=== PATIENT | male | born 1945 | race Caucasian/White ===

== ENCOUNTER 2018-09-27 19:01 | Emergency (ER) | payer OTHER ==
[2018-09-27 21:12] LABS: ABS Basophils 0 10^3/ul (0-0.2); ABS Eosinophils 0.5 10^3/ul (0-0.6); ABS Lymphocytes 2.9 10^3/ul (1.0-4.8); ABS Monocytes 1.1 10^3/ul (0-0.8); ABS Neutrophils 6.3 10^3/ul (1.5-7.7); ABS Nucleated RBC 0 10^3/ul; Eosinophil % 4.9 %; Hematocrit 35 % (36-46); Hemoglobin 11.8 g/dL (14.0-18.0); Lymphocyte % 26.8 %; Mean Corpuscular HGB Conc 34 g/dL (31-36); Mean Corpuscular Hemoglobin 30 pg (27-31); Mean Corpuscular Volume 88 fL (80-94); Nucleated Red Blood Cells % 0; Platelet Count 199 10^3/uL (150-450); Red Blood Count 3.99 10^6 /uL (4.18-5.48); Red Cell Distribution Width 14 % (10.5-15); White Blood Count 10.9 10^3/uL (3.5-10.8)
[2018-09-27 21:29] LABS: Albumin 3.7 g/dL (3.2-5.2); Albumin/Globulin Ratio 1.3 (1-3); BUN/Creatinine Ratio 17.3 (8-20); EGFR Non-African American 37.2 (>60); Globulin 2.9 g/dL (2-4); Potassium 4.6 mmol/L (3.5-5.0); Total Protein 6.6 g/dL (6.4-8.9)
--- NOTE | 2018-09-28 00:14 | ED ---
Lower Extremity - HPI Summary HPI Summary: The patient is a 73 year old male who is presenting to the [facility] with a chief complaint of bilateral lower extremity swelling. The patient is accompanied with his . The swelling has been persistent for a few months according to the patient, but has worsened according to his . The patient was seen at a [facility] and was frequenting the center in order to receive medication when he was recommended to enter the [facility] to be seen for the lower extremity swelling. The patient also reports redness at both lower extremities. He denies SOB. He reports minor bilateral leg pain. Pertinent past medical history includes T2 DM and neuropathy. He is also currently listed under disability according to his . The pain is rated to be 4/10 in severity. Symptoms are alleviated by nothing. Symptoms are aggravated by nothing. - History of Current Complaint Chief Complaint: EDExtremityLower Stated Complaint: BOTH LEGS SWOLLEN PER PT Time Seen by Provider: 09/27/18 23:36 Hx Obtained From: Patient, Family/[employer] Onset/Duration: Weeks Severity Initially: Moderate Severity Currently: Moderate Pain Intensity: 4 Pain Scale Used: 0-10 Numeric Timing: Constant Associated Signs And Symptoms: Positive: Negative Aggravating Factor(s): Nothing Alleviating Factor(s): Nothing - Allergies/Home Medications Allergies/Adverse Reactions: Allergies Allergy/AdvReac Type Severity Reaction Status Date / Time poison aimee extract Allergy Unknown Hives Verified 07/30/18 11:18 sulfamethoxazole Allergy Unknown Verified 07/30/18 11:18 [From Bactrim] Reaction Details trimethoprim [From Bactrim] Allergy Unknown Verified 07/30/18 11:18 Reaction Details PMH/Surg Hx/FS Hx/Imm Hx Endocrine/Hematology History: Reports: Hx Diabetes, Hx Thyroid Disease, Hx Anemia Denies: Hx Anticoagulant Therapy Cardiovascular History: Reports: Hx Angina, Hx Hypercholesterolemia, Hx Hypertension, Other Cardiovascular Problems/Disorders - "heart enlarged" Denies: Hx Coronary Artery Disease, Hx Myocardial Infarction, Hx Pacemaker/ ICD, Hx Valvular Heart Disease Respiratory History: Reports: Hx Sleep Apnea Denies: Hx Asthma, Hx Chronic Obstructive Pulmonary Disease (COPD) GI History: Reports: Hx Gastroesophageal Reflux Disease, Other GI Disorders - Barretts Esophagus History: Reports: Hx Acute Renal Failure, Hx Benign Prostatic Hyperplasia, Hx Chronic Renal Failure - stage 3, Other Problems/Disorders - pt states has "kidney problems", seeing specialist in january Musculoskeletal History: Reports: Hx Arthritis, Hx Back Problems, Other Musculoskeletal History - Frequent falls r/t loss of foot sensation Sensory History: Reports: Hx Contacts or Glasses, Hx Hearing Aid - x2, Hx Hearing Problem - KASHIA, tinnitis, Other Sensory Impairments Opthamlomology History: Reports: Hx Contacts or Glasses, Other Sensory Impairments Neurological History: Reports: Other Neuro Impairments/Disorders - diabetic neuropathy, parkinson's, PAIN CLINIC PT. Denies: Hx Headaches Psychiatric History: Reports: Hx Depression, Hx Post Traumatic Stress Disorder Denies: Hx Panic Disorder, Hx Substance Abuse - Surgical History Surgery Procedure, Year, and Place: cholecystectomy. vasectomy Hx Anesthesia Reactions: No Infectious Disease History: No Infectious Disease History: Denies: Traveled Outside the [place] in Last 30 Days - Family History Known Family History: Positive: Other - Cancer Negative: Cardiac Disease - Social History Alcohol Use: None Alcohol Amount: couple beers/week Substance Use Type: Reports: None Smoking Status (MU): Former Smoker Type: Cigarettes Have You Smoked in the Last Year: No Review of Systems Constitutional: Negative Eyes: Negative ENT: Negative Cardiovascular: Negative Negative: Shortness Of Breath Gastrointestinal: Negative Genitourinary: Negative Musculoskeletal: Other - Bilateral Lower Extermity pain Positive: Edema - Bilateral Lower Extremity Skin: Other - Redness Lower Extermity bilaterally Neurological: Negative Psychological: Normal All Other Systems Reviewed And Are Negative: Yes Physical Exam - Summary Physical Exam Summary: VITAL SIGNS: Reviewed. GENERAL: Patient is a well-developed and nourished (MALE) who is lying comfortable in the stretcher. Patient is not in any acute respiratory distress. HEAD AND FACE: No signs of trauma. No ecchymosis, hematomas or skull depressions. No sinus tenderness. EYES: PERRLA, EOMI x 2, No injected conjunctiva, no nystagmus. EARS: Hearing grossly intact. Ear canals and tympanic membranes are within normal limits. MOUTH: Oropharynx within normal limits. NECK: Supple, trachea is midline, no adenopathy, no JVD, no carotid bruit, no c- spine tenderness, neck with full ROM. CHEST: Symmetric, no tenderness at palpation LUNGS: Clear to auscultation bilaterally. No wheezing or crackles. CVS: Regular rate and rhythm, S1 and S2 present, no murmurs or gallops appreciated. ABDOMEN: Soft, non-tender. No signs of distention. No rebound no guarding, and no masses palpated. Bowel sounds are normal. EXTREMITIES: Bilateral Lower Extremity Edema. NEURO: Alert and oriented x 3. No acute neurological deficits. Speech is normal and follows commands. SKIN: Chronic Skin Changes Triage Information Reviewed: Yes Vital Signs On Initial Exam: Initial Vitals Temp Pulse Resp BP Pulse Ox 98.1 F 81 18 106/88 95 09/27/18 19:16 09/27/18 19:16 09/27/18 19:16 09/27/18 19:16 09/27/18 19:16 Vital Signs Reviewed: Yes Diagnostics - Vital Signs Vital Signs Temp Pulse Resp BP Pulse Ox 09/27/18 23:33 71 24 143/66 96 09/27/18 23:32 76 22 96 09/27/18 20:58 98.5 F 70 20 129/59 96 09/27/18 19:58 98.5 F 70 20 129/59 96 09/27/18 19:16 98.1 F 81 18 106/88 95 - Laboratory Lab Results: Lab Results 09/27/18 09/27/18 09/27/18 Range/Units 21:02 21:02 21:02 WBC 10.9 H (3.5-10.8) 10^3/uL RBC 3.99 L (4.18-5.48) 10^6 /uL Hgb 11.8 L (14.0-18.0) g/dL Hct 35 L (36-46) % MCV 88 (80-94) fL MCH 30 (27-31) pg MCHC 34 (31-36) g/dL RDW 14 (10.5-15) % Plt Count 199 (150-450) 10^3/uL MPV 9.0 (7.4-10.4) fL Neut % (Auto) 58.2 % Lymph % (Auto) 26.8 % [place] % (Auto) 9.9 % Eos % (Auto) 4.9 % Baso % (Auto) 0.2 % Absolute Neuts (auto) 6.3 (1.5-7.7) 10^3/ul Absolute Lymphs (auto) 2.9 (1.0-4.8) 10^3/ul Absolute Monos (auto) 1.1 H (0-0.8) 10^3/ul Absolute Eos (auto) 0.5 (0-0.6) 10^3/ul Absolute Basos (auto) 0 (0-0.2) 10^3/ul Absolute Nucleated RBC 0 10^3/ul Nucleated RBC % 0 Sodium 138 (135-145) mmol/L Potassium 4.6 (3.5-5.0) mmol/L Chloride 107 (101-111) mmol/L Carbon Dioxide 26 (22-32) mmol/L Anion Gap 5 (2-11) mmol/L BUN 31 H (6-24) mg/dL Creatinine 1.79 H (0.67-1.17) mg/dL Est GFR ( Amer) 45.0 (>60) Est GFR (Non-Af Amer) 37.2 (>60) BUN/Creatinine Ratio 17.3 (8-20) Glucose 214 H (70-100) mg/dL Lactic Acid 0.8 (0.5-2.0) mmol/L Calcium 9.0 (8.6-10.3) mg/dL Total Bilirubin 1.00 (0.2-1.0) mg/dL AST 24 (13-39) U/L ALT 22 (7-52) U/L Alkaline Phosphatase 69 (34-104) U/L Troponin I 0.00 (<0.04) ng/mL B-Natriuretic Peptide (<=100) pg/mL Total Protein 6.6 (6.4-8.9) g/dL Albumin 3.7 (3.2-5.2) g/dL Globulin 2.9 (2-4) g/dL Albumin/Globulin Ratio 1.3 (1-3) 09/27/18 Range/Units 21:02 WBC (3.5-10.8) 10^3/uL RBC (4.18-5.48) 10^6 /uL Hgb (14.0-18.0) g/dL Hct (36-46) % MCV (80-94) fL MCH (27-31) pg MCHC (31-36) g/dL RDW (10.5-15) % Plt Count (150-450) 10^3/uL MPV (7.4-10.4) fL Neut % (Auto) % Lymph % (Auto) % [place] % (Auto) % Eos % (Auto) % Baso % (Auto) % Absolute Neuts (auto) (1.5-7.7) 10^3/ul Absolute Lymphs (auto) (1.0-4.8) 10^3/ul Absolute Monos (auto) (0-0.8) 10^3/ul Absolute Eos (auto) (0-0.6) 10^3/ul Absolute Basos (auto) (0-0.2) 10^3/ul Absolute Nucleated RBC 10^3/ul Nucleated RBC % Sodium (135-145) mmol/L Potassium (3.5-5.0) mmol/L Chloride (101-111) mmol/L Carbon Dioxide (22-32) mmol/L Anion Gap (2-11) mmol/L BUN (6-24) mg/dL Creatinine (0.67-1.17) mg/dL Est GFR ( Amer) (>60) Est GFR (Non-Af Amer) (>60) BUN/Creatinine Ratio (8-20) Glucose (70-100) mg/dL Lactic Acid (0.5-2.0) mmol/L Calcium (8.6-10.3) mg/dL Total Bilirubin (0.2-1.0) mg/dL AST (13-39) U/L ALT (7-52) U/L Alkaline Phosphatase (34-104) U/L Troponin I (<0.04) ng/mL B-Natriuretic Peptide 30 (<=100) pg/mL Total Protein (6.4-8.9) g/dL Albumin (3.2-5.2) g/dL Globulin (2-4) g/dL Albumin/Globulin Ratio (1-3) Result Diagrams: 09/27/18 21:02 09/27/18 21:02 Lab Statement: Any lab studies that have been ordered have been reviewed, and results considered in the medical decision making process. - Radiology Chest X-ray Radiology Interpretation Completed By: ED Physician Summary of Radiographic Findings: Chest X-ray reveals no acute processes as per ED Physician. - Ultrasound No standard instances Ultrasound Interpretation Completed By: Radiologist Summary of Ultrasound Findings: US Venous Dopplar Study reveals as per radiologist, No acute findings. No evidence of deep vein thrombosis. The ED Physician has reviewed this radiology report. Lower Extremity Course/Dx - Course Course Of Treatment: The patient is a 73 year old male who is presenting to the [facility] with a chief complaint of Bilateral lower extremity edema. In the [facility], the patient received a chest X-ray and a US Venous Dopplar Study. The patient, upon reviewing the radiology reports, will be discharged home. We recommend Elastic stocking for the patient to wear and also elevation at home to reduce the swelling. The dx will be lower extremity edema. The patient is agreeable to this plan and will follow up with his primary care physician as recommended. - Diagnoses Provider Diagnoses: Lower extremity edema Discharge - Sign-Out/Discharge Documenting (check all that apply): Patient Departure - Discharge Home Patient Received Moderate/Deep Sedation with Procedure: No - Discharge Plan Condition: Stable Disposition: HOME Referrals: Devi Hernández [Primary Care Provider] - - Attestation Statements Document Initiated by Osmany: Yes Documenting Scribe: Yannick Santamaria Provider For Whom Osmany is Documenting (Include Credential): Dr. Tato Ceron Attestation: Yannick Laura scribed for Dr. Enrique Patel on 09/28/18 at 0100. Status of Scribe Document: Ready
[2018-09-28 02:14] VITALS: BP 134/62
== END 2018-09-28 01:40 | disposition home or self-care (01) ==
LOC: ED 19:01
DX: R60.0 Localized edema (principal); J44.9 Chronic obstructive pulmonary disease, unspecified; I11.9 Hypertensive heart disease without heart failure; E11.9 Type 2 diabetes mellitus without complications; E07.9 Disorder of thyroid, unspecified; D64.9 Anemia, unspecified; E78.00 Pure hypercholesterolemia, unspecified; F32.9 Major depressive disorder, single episode, unspecified; Z88.2 Allergy status to sulfonamides; Z88.8 Allergy status to other drugs, medicaments and biological substances; Z87.891 Personal history of nicotine dependence
CPT/HCPCS: 36415; 71046; 80053; 83605; 83880; 84484; 85025; 93970; 99283

== ENCOUNTER 2019-03-12 15:24 | Emergency (ER) | payer OTHER ==
[2019-03-12] MEDS ORDERED: NS 0.9% 1000 ML** 1,000 ML IV ONE ×3 (16:55→20:32)
[2019-03-12 17:32] LABS: ABS Basophils 0.1 10^3/ul (0-0.2); ABS Eosinophils 0.3 10^3/ul (0-0.6); ABS Lymphocytes 1.6 10^3/ul (1.0-4.8); ABS Monocytes 0.7 10^3/ul (0-0.8); ABS Neutrophils 6.9 10^3/ul (1.5-7.7); Eosinophil % 3.3 %; Hematocrit 37 % (42-52); Hemoglobin 12.4 g/dL (14.0-18.0); Lymphocyte % 16.9 %; Mean Corpuscular HGB Conc 34 g/dL (31-36); Mean Corpuscular Hemoglobin 31 pg (27-31); Mean Corpuscular Volume 91 fL (80-94); Mean Platelet Volume 9.5 fL (7.4-10.4); Nucleated Red Blood Cells % 0.1; Platelet Count 191 10^3/uL (150-450); Red Blood Count 4.04 10^6 /uL (4.18-5.48); Red Cell Distribution Width 15 % (10-15); White Blood Count 9.7 10^3/uL (3.5-10.8)
[2019-03-12 17:43] LABS: Activated Partial Thrombo Time 35.3 seconds (26.0-38.0); INR 1.12 (0.82-1.09)
[2019-03-12 17:53] LABS: Albumin/Globulin Ratio 1.3 (1-3); BUN/Creatinine Ratio 33.2 (8-20); C Reactive Protein 1.44 mg/L (<8.01); Calcium 9.3 mg/dL (8.6-10.3); EGFR African American 37.9 (>60); EGFR Non-African American 31.3 (>60); Globulin 3.1 g/dL (2-4); Total Bilirubin 1.1 mg/dL (0.2-1.0); Total Protein 7.1 g/dL (6.4-8.9)
[2019-03-12 17:54] LABS: Potassium 5.2 mmol/L (3.5-5.0)
[2019-03-12 18:03] LABS: Urine Appearance Clear; Urine Bilirubin Negative (Negative); Urine Blood Negative (Negative); Urine Color Yellow; Urine Glucose Negative (Negative); Urine Ketones Negative (Negative); Urine Nitrite Negative (Negative); Urine Protein Negative (Negative); Urine Specific Gravity 1.012 (1.010-1.030); Urine Urobilinogen Negative (Negative)
[2019-03-12 18:07] LABS: TSH (Thyroid Stimulating Horm) 2.43 mcIU/mL (0.34-5.60)
[2019-03-12] MEDS ORDERED: Acetaminophen TAB* 325 MG PO ONE (18:48)
--- NOTE | 2019-03-12 20:23 | ED ---
Syncope/Near Syncope - HPI Summary HPI Summary: This patient is a year old M presenting to [facility] accompanied by Paige with a chief complaint of dizziness since 03/01/19. Patient's states that patient receives his usual at the [facility]. They have been adjusting his BP meds and pt was advised to come to the ED when his systolic BP is below 100. Patient's stated that patien's systolic BP dropped to 65 today. Patient's also states that he has been lightheaded and has no appetite and poor po intake for more than a week. His glucoses have not been running low. Pt has hx HTN, DM HLD, CAD, so he came for evaluation. The patient denies chest pain or any pain thus rates pain, 0/10 in severity. Symptoms aggravated by nothing. Symptoms alleviated by nothing. Patient reports MORENO and diaphoresis. Patient denies fever, chills, cough,SOB, chest pain, abdominal pain, N,V,D, urinary sxs. Pt has had no syncope or fall, no stroke like symptoms such as focal weakness, speech problems, trouble with gait or facial asymmetry per . Vital signs while in room: HR 68 bpm, BP 148/74, O2 sat 97% Allergies Allergy/AdvReac Type Severity Reaction Status Date / Time poison aimee extract Allergy Unknown Hives Verified 01/13/19 10:39 sulfamethoxazole Allergy Unknown Verified 01/13/19 10:39 [From Bactrim] Reaction Details trimethoprim [From Bactrim] Allergy Unknown Verified 01/13/19 10:39 Reaction Details Home Medications Medication Instructions Recorded Confirmed Type Atorvastatin* [Lipitor*] 10 mg PO DAILY 04/30/14 03/12/19 History Cholecalciferol TAB* [Vitamin D 2,000 unit PO DAILY 04/30/14 03/12/19 History TAB*] Pregabalin CAP(*) [Lyrica CAP(*)] 150 mg PO TID 10/29/17 03/12/19 History Acetaminophen TAB* [Tylenol TAB*] 325 - 650 mg PO BID PRN 03/12/19 03/12/19 History Aspirin EC TAB* [Ecotrin EC Low 81 mg PO DAILY 03/12/19 03/12/19 History Dose 81 MG*] Fluoride (Sodium) [Prevident 1.1 % PO DAILY 03/12/19 03/12/19 History Fluoride] Glucose ORAL* [Glutose*] 15 gm PO . DIRECTED PRN 03/12/19 03/12/19 History Insulin ASPART (NF) [Novolog (NF)] 0 - 100 units SUBCUT TID WITH MEALS 03/12/19 03/12/19 History Insulin GLARGINE(*) [Lantus(*)] 30 - 34 units SUBCUT QPM 03/12/19 03/12/19 History Levothyroxine TAB* [Synthroid TAB*] 50 mcg PO QAM 03/12/19 03/12/19 History Lisinopril TAB* [Prinivil TAB*] 40 mg PO DAILY 03/12/19 03/12/19 History Loperamide CAP* [Imodium CAP*] 2 mg PO BID PRN 03/12/19 03/12/19 History Tamsulosin CAP* [Flomax CAP*] 0.4 mg PO DAILY 03/12/19 03/12/19 History - History Of Current Complaint Chief Complaint: EDDizziness Time Seen by Provider: 03/12/19 16:55 Hx Obtained From: Patient, Family/Loose Hand Packer - , Paige Onset/Duration: Sudden Onset, Lasting Weeks - 1-1.5 Timing: Constant Context: Other - generalized weakness, dizziness, low BP, and poor po intake. Activity At Onset: At Rest Associated Head Trauma: No Aggravating Factor(s): Other - nothing Alleviating Factor(s): Nothing Associated Signs And Symptoms: Decreased Oral Intake, Diaphoresis, Dizzy, Headache, Weakness - generalized - Allergies/Home Medications Allergies/Adverse Reactions: Allergies Allergy/AdvReac Type Severity Reaction Status Date / Time poison aimee extract Allergy Unknown Hives Verified 01/13/19 10:39 sulfamethoxazole Allergy Unknown Verified 01/13/19 10:39 [From Bactrim] Reaction Details trimethoprim [From Bactrim] Allergy Unknown Verified 01/13/19 10:39 Reaction Details Home Medications: Home Medications Acetaminophen TAB* [Tylenol TAB*] 325 - 650 mg PO BID PRN 03/12/19 [History Confirmed 03/12/19] Aspirin EC TAB* [Ecotrin EC Low Dose 81 MG*] 81 mg PO DAILY 03/12/19 [History Confirmed 03/12/19] Fluoride (Sodium) [Prevident Fluoride] 1.1 % PO DAILY 03/12/19 [History Confirmed 03/12/19] Glucose ORAL* [Glutose*] 15 gm PO . DIRECTED PRN 03/12/19 [History Confirmed 03/12/19] Insulin ASPART (NF) [Novolog (NF)] 0 - 100 units SUBCUT TID WITH MEALS 03/12/19 [History Confirmed 03/12/19] Insulin GLARGINE(*) [Lantus(*)] 30 - 34 units SUBCUT QPM 03/12/19 [History Confirmed 03/12/19] Levothyroxine TAB* [Synthroid TAB*] 50 mcg PO QAM 03/12/19 [History Confirmed ] Lisinopril TAB* [Prinivil TAB*] 40 mg PO DAILY 03/12/19 [History Confirmed 03/12] Loperamide CAP* [Imodium CAP*] 2 mg PO BID PRN 03/12/19 [History Confirmed 03/12] Tamsulosin CAP* [Flomax CAP*] 0.4 mg PO DAILY 03/12/19 [History Confirmed ] PMH/Surg Hx/FS Hx/Imm Hx Previously Healthy: No Endocrine/Hematology History: Reports: Hx Diabetes, Hx Thyroid Disease - hypothyroid , Hx Anemia Denies: Hx Anticoagulant Therapy Cardiovascular History: Reports: Hx Angina, Hx Coronary Artery Disease, Hx Hypercholesterolemia, Hx Hypertension, Other Cardiovascular Problems/Disorders - "heart enlarged" Denies: Hx Myocardial Infarction, Hx Pacemaker/ICD, Hx Valvular Heart Disease Respiratory History: Reports: Hx Sleep Apnea Denies: Hx Asthma, Hx Chronic Obstructive Pulmonary Disease (COPD) GI History: Reports: Hx Gastroesophageal Reflux Disease, Other GI Disorders - Harris's Esophagus History: Reports: Hx Acute Renal Failure, Hx Benign Prostatic Hyperplasia, Hx Chronic Renal Failure - stage 3 CKD Musculoskeletal History: Reports: Hx Arthritis, Hx Back Problems, Other Musculoskeletal History - Frequent falls r/t loss of foot sensation Sensory History: Reports: Hx Contacts or Glasses, Hx Hearing Aid - x2, Hx Hearing Problem - [place], tinnitis Opthamlomology History: Reports: Hx Contacts or Glasses EENT History: Reports: Hx Hearing Aid Neurological History: Reports: Hx Peripheral Neuropathy, Other Neuro Impairments /Disorders - Parkinson's. Denies: Hx Headaches Psychiatric History: Reports: Hx Depression, Hx Post Traumatic Stress Disorder Denies: Hx Panic Disorder, Hx Substance Abuse - Surgical History Surgical History: Yes Surgery Procedure, Year, and Place: cholecystectomy. vasectomy Hx Anesthesia Reactions: No Infectious Disease History: No Infectious Disease History: Denies: Traveled Outside the [place] in Last 30 Days - Family History Known Family History: Positive: Other - Cancer Negative: Cardiac Disease - Social History Lives: With Family Alcohol Use: None Alcohol Amount: couple beers/week Substance Use Type: Reports: None Smoking Status (MU): Former Smoker Type: Cigarettes Have You Smoked in the Last Year: No Review of Systems Positive: Skin Diaphoresis Cardiovascular: Negative Respiratory: Negative Gastrointestinal: Negative, Other - no appetite Positive: no symptoms reported Musculoskeletal: Negative Skin: Negative Positive: Headache, Weakness Psychological: Normal All Other Systems Reviewed And Are Negative: Yes Physical Exam - Summary Physical Exam Summary: Appearance: Well appearing, no acute pain distress, well-nourished Skin: Warm, color reflects adequate perfusion, dry, flushed Head: Normal Head/Face inspection, atraumatic, minimal left facial droop ( preexisting) Eyes: Conjunctiva clear, PERRL EOMI, no nystagmus ENT: dry mucosa Neck: Supple, no nodes, no JVD Respiratory: Lungs clear, normal breath sounds, no respiratory distress Cardio: RRR, No murmur, pulses normal, brisk capillary refill Abdomen: Soft, nontender Bowel sounds: Present Musculoskeletal: Strength Intact/ROM intact, no calf tenderness, no edema. Psychological: Normal Neuro: Alert, muscle tone normal, no focal deficit except pre-existing (per ) left facial droop, Motor 5/5, sensation intact to light touch, nl gait. Triage Information Reviewed: Yes Vital Signs On Initial Exam: Initial Vitals Temp Pulse Resp BP Pulse Ox 97.8 F 88 16 92/62 97 03/12/19 15:46 03/12/19 15:46 03/12/19 15:46 03/12/19 15:46 03/12/19 15:46 Vital Signs Reviewed: Yes Procedures - Sedation Patient Received Moderate/Deep Sedation with Procedure: No Diagnostics - Vital Signs Vital Signs Temp Pulse Resp BP Pulse Ox 03/12/19 19:44 97.7 F 96 03/12/19 19:41 19 122/68 03/12/19 19:11 18 115/69 03/12/19 19:00 20 03/12/19 18:56 25 150/71 03/12/19 18:54 21 146/82 03/12/19 18:51 22 133/71 03/12/19 18:41 67 15 142/73 97 03/12/19 18:35 98.5 F 03/12/19 18:34 68 18 148/74 97 03/12/19 18:00 20 03/12/19 17:47 97 90/59 03/12/19 16:40 62 20 110/61 93 03/12/19 16:13 64 16 03/12/19 16:11 11 112/62 03/12/19 16:10 17 03/12/19 15:46 97.8 F 88 16 92/62 97 - Laboratory Lab Results: Lab Results 03/12/19 03/12/19 03/12/19 Range/Units 17:18 17:18 17:18 WBC 9.7 (3.5-10.8) 10^3/uL RBC 4.04 L (4.18-5.48) 10^6 /uL Hgb 12.4 L (14.0-18.0) g/dL Hct 37 L (42-52) % MCV 91 (80-94) fL MCH 31 (27-31) pg MCHC 34 (31-36) g/dL RDW 15 (10-15) % Plt Count 191 (150-450) 10^3/uL MPV 9.5 (7.4-10.4) fL Neut % (Auto) 71.3 % Lymph % (Auto) 16.9 % [place] % (Auto) 7.2 % Eos % (Auto) 3.3 % Baso % (Auto) 1.3 % Absolute Neuts (auto) 6.9 (1.5-7.7) 10^3/ul Absolute Lymphs (auto) 1.6 (1.0-4.8) 10^3/ul Absolute Monos (auto) 0.7 (0-0.8) 10^3/ul Absolute Eos (auto) 0.3 (0-0.6) 10^3/ul Absolute Basos (auto) 0.1 (0-0.2) 10^3/ul Absolute Nucleated RBC 0.0 10^3/ul Nucleated RBC % 0.1 INR (Anticoag Therapy) 1.12 H (0.82-1.09) APTT 35.3 (26.0-38.0) seconds Sodium 135 (135-145) mmol/L Potassium 5.2 H (3.5-5.0) mmol/L Chloride 108 (101-111) mmol/L Carbon Dioxide 20 L (22-32) mmol/L Anion Gap 7 (2-11) mmol/L BUN 69 H (6-24) mg/dL Creatinine 2.08 H (0.67-1.17) mg/dL Est GFR ( Amer) 37.9 (>60) Est GFR (Non-Af Amer) 31.3 (>60) BUN/Creatinine Ratio 33.2 H (8-20) Glucose 174 H (70-100) mg/dL Lactic Acid (0.5-2.0) mmol/L Calcium 9.3 (8.6-10.3) mg/dL Magnesium 2.0 (1.9-2.7) mg/dL Total Bilirubin 1.10 H (0.2-1.0) mg/dL AST 21 (13-39) U/L ALT 31 (7-52) U/L Alkaline Phosphatase 79 (34-104) U/L Total Creatine Kinase 148 (10-223) U/L Troponin I 0.00 (<0.04) ng/mL C-Reactive Protein 1.44 (<8.01) mg/L B-Natriuretic Peptide (<=100) pg/mL Total Protein 7.1 (6.4-8.9) g/dL Albumin 4.0 (3.2-5.2) g/dL Globulin 3.1 (2-4) g/dL Albumin/Globulin Ratio 1.3 (1-3) TSH 2.43 (0.34-5.60) mcIU/mL Urine Color Urine Appearance Urine pH (5-9) Ur Specific [place] (1.010-1.030) Urine Protein (Negative) Urine Ketones (Negative) Urine Blood (Negative) Urine Nitrate (Negative) Urine Bilirubin (Negative) Urine Urobilinogen (Negative) Ur Leukocyte Esterase (Negative) Urine Glucose (Negative) 03/12/19 03/12/19 03/12/19 Range/Units 17:18 17:18 17:44 WBC (3.5-10.8) 10^3/uL RBC (4.18-5.48) 10^6 /uL Hgb (14.0-18.0) g/dL Hct (42-52) % MCV (80-94) fL MCH (27-31) pg MCHC (31-36) g/dL RDW (10-15) % Plt Count (150-450) 10^3/uL MPV (7.4-10.4) fL Neut % (Auto) % Lymph % (Auto) % [place] % (Auto) % Eos % (Auto) % Baso % (Auto) % Absolute Neuts (auto) (1.5-7.7) 10^3/ul Absolute Lymphs (auto) (1.0-4.8) 10^3/ul Absolute Monos (auto) (0-0.8) 10^3/ul Absolute Eos (auto) (0-0.6) 10^3/ul Absolute Basos (auto) (0-0.2) 10^3/ul Absolute Nucleated RBC 10^3/ul Nucleated RBC % INR (Anticoag Therapy) (0.82-1.09) APTT (26.0-38.0) seconds Sodium (135-145) mmol/L Potassium (3.5-5.0) mmol/L Chloride (101-111) mmol/L Carbon Dioxide (22-32) mmol/L Anion Gap (2-11) mmol/L BUN (6-24) mg/dL Creatinine (0.67-1.17) mg/dL Est GFR ( Amer) (>60) Est GFR (Non-Af Amer) (>60) BUN/Creatinine Ratio (8-20) Glucose (70-100) mg/dL Lactic Acid 0.7 (0.5-2.0) mmol/L Calcium (8.6-10.3) mg/dL Magnesium (1.9-2.7) mg/dL Total Bilirubin (0.2-1.0) mg/dL AST (13-39) U/L ALT (7-52) U/L Alkaline Phosphatase (34-104) U/L Total Creatine Kinase (10-223) U/L Troponin I (<0.04) ng/mL C-Reactive Protein (<8.01) mg/L B-Natriuretic Peptide 26 (<=100) pg/mL Total Protein (6.4-8.9) g/dL Albumin (3.2-5.2) g/dL Globulin (2-4) g/dL Albumin/Globulin Ratio (1-3) TSH (0.34-5.60) mcIU/mL Urine Color Yellow Urine Appearance Clear Urine pH 5.0 (5-9) Ur Specific [place] 1.012 (1.010-1.030) Urine Protein Negative (Negative) Urine Ketones Negative (Negative) Urine Blood Negative (Negative) Urine Nitrate Negative (Negative) Urine Bilirubin Negative (Negative) Urine Urobilinogen Negative (Negative) Ur Leukocyte Esterase Negative (Negative) Urine Glucose Negative (Negative) Result Diagrams: 03/12/19 17:18 03/12/19 17:18 Lab Statement: Any lab studies that have been ordered have been reviewed, and results considered in the medical decision making process. - Radiology Chest Xray Radiology Interpretation Completed By: Radiologist Summary of Radiographic Findings: Chest Xray reveals, per radiologist, IMPRESSION: No evidence for acute intrathoracic disease. ED Physician has reviewed this report. - CT Brain CT CT Interpretation Completed By: Radiologist Summary of CT Findings: Brain CT reveals, per radiologist, IMPRESSION: No acute intracranial process evident. Mild involutional change. ED Physician has reviewed this report. - EKG 1557 Cardiac Rate: NL - 76 EKG Rhythm: Sinus Rhythm ST Segment: Non-Specific - nl AVCT, RBBB, nl QCt Ectopy: None EKG Comparison: No Significant Change - 10/22/13 Summary of EKG Findings: SR, RBBB, no acute changes, no change c/w prior. has reviewed and interpreted this EKG. Re-Evaluation - Re-Evaluation First Eval Re-Evaluation Time: 20:20 Change: Improved Comment: Pt is ambulatory without assistance to BR, feels much better. Second Eval Re-Evaluation Time: 20:30 Change: Improved Comment: discussed diagnoses and orthostatic BP's. Pt has eaten a turkey sandwich and is drinking. Second liter IVNS infusing while preparing to DC. and pt agree with DC. is checking pt's peripheral glucose device that does not require fingersticks, and states that she and pt will manage his DM and glucoses at home. Third Eval Re-Evaluation Time: 21:10 Change: Improved Comment: Pt standing in ED prior to DC. Dizziness improved. Agrees with DC. Course/Dx Course Of Treatment: 73 yo M with hx HTN, DM, HLD, CAD, and a [employer] vet 100% disabled due to [employer] [place] presents with 1 week of dizziness, and hypotension noted at home with BP's less than 100 systolic. Pt is on amlodipine and lisinopril and has DC'd [facility] ([facility]) and has decreased his lisinopril without improving his BP. In ED pt found to be orthostatic for pulse and BP, and was hydrated with NS IV x 3 liters. EKG reveals SR, RBBB, no acute changes, no change c/w prior. ED MD has reviewed and interpreted this EKG. Brain CT reveals, per radiologist, IMPRESSION: No acute intracranial process evident. Mild involutional change. ED Physician has reviewed this report. Brain CT reveals, per radiologist, IMPRESSION: No acute intracranial process evident. Mild involutional change. ED Physician has reviewed this report. In the ED course the patient was given 3 liters of IV fluid for orthostatic BP and pulse and dizziness and Tylenol 650 mg po for a MORENO. Pt's wbc was normal, troponin x 1 was neg, EKG was unchanged and pt had no CP or SOB, CRP was normal, BNP was normal, TSH was normal, and UA was negative. He remained afebrile in the ED and BP's improved with hydration as did symptoms. Pt's Hb was 12 (c/w prior anemia, and he had no vomiting or diarrhea to suggest possible GI bleed), K+ was 5.2 (advised that hydration should improve this, decreased lisinopril may help, to avoid high K+ foods, and definitely have it rechecked in 2 days.Pt's GFR was 31.3 slightly worse from 37 on 10/05/18, but still stage 3 CKD which he has had. His glucose was 179, and this correlated with pt's device that he uses that is implanted in his right upper arm and does not require FS to determine blood glucose. Pt and state that they can manage their glucoses and insulin at home. Patient will be discharged home and the patient is agreeable with this plan. He will continue to take his BP meds as directed and [facility], and attempt to hydrate and eat more. - Diagnoses Differential Diagnosis/HQI/PQRI: Positive: Coronary Artery Disease, Dysrhythmia , Hypoglycemia, Hypovolemia, Myocardial Infarction, Medication Reaction Provider Diagnoses: Near syncope, Hyperkalemia, Orthostatic hypotension, Dehydration, CKD (chronic kidney disease) stage 3, GFR 30-59 ml/min, Anemia, Diabetes mellitus type 2, uncontrolled, without complications Discharge ED - Sign-Out/Discharge Documenting (check all that apply): Patient Departure - home Patient Received Moderate/Deep Sedation with Procedure: No - Discharge Plan Condition: Stable Disposition: HOME Patient Education Materials: Dehydration (ED), Hyperkalemia (ED), Hypotension ( ED) Referrals: Devi Hernández [Primary Care Provider] - 2 Days Additional Instructions: Your blood pressure and pulse were "orthostatic" today meaning that your blood pressure dropped and your pulse got faster when you went from lying to standing , indicating dehydration. You were given IV fluids and food while you were in the ER, with improvement of your orthostatic vital signs. You should continue with the new orders for your blood pressure medication that you have been following since the blood pressure has been low. Your CT brain and your chest xray did not show any abnormalities that need medical attention at this time. Please continue to eat, and to drink plenty of fluids, and continue to follow your glucoses and treat appropriately. Your potassium was minimally elevated while you were in the ER. We have given you instructions about avoiding foods that are higher in potassium. The lisinopril does contribute somewhat to the elevated potassium, but you should continue the lisinopril as directed. Your kidney function was also somewhat worse that it has been, however that should have improved with the hydration, although worsened kidney function also can cause the potassium to be elevated. You will need definite follow up labs in the next few days. Please [facility] with the [facility] in the next 2 days, and please return to the ER if any new or worsening symptoms. - Billing Disposition and Condition Condition: STABLE Disposition: Home - Attestation Statements Document Initiated by Scribe: Yes Documenting Scribe: Maryana Blacmkan Provider For Whom Osmany is Documenting (Include Credential): Dr. Sophia Verdugo MD Scribe Attestation: Maryana Laura scribed for Dr. Sophia Verdugo MD on 04/07/19 at 1210. Scribe Documentation Reviewed: Yes Provider Attestation: The documentation as recorded by the scribe, Maryana Blackman accurately reflects the service I personally performed and the decisions made by me, Dr. Sophia Verdugo MD Status of Scribe Document: Viewed
[2019-03-12 20:55] VITALS: BP 120/61
== END 2019-03-12 21:21 | disposition home or self-care (01) ==
LOC: ED 15:24
DX: R55 Syncope and collapse (principal); E87.5 Hyperkalemia; I95.1 Orthostatic hypotension; E86.0 Dehydration; E11.22 Type 2 diabetes mellitus with diabetic chronic kidney disease; I12.9 Hypertensive chronic kidney disease with stage 1 through stage 4 chronic kidney disease, or unspecified chronic kidney disease; N18.3 Chronic kidney disease, stage 3 (moderate); D63.1 Anemia in chronic kidney disease; E07.9 Disorder of thyroid, unspecified; E78.00 Pure hypercholesterolemia, unspecified; K21.9 Gastro-esophageal reflux disease without esophagitis; N40.0 Benign prostatic hyperplasia without lower urinary tract symptoms; E11.40 Type 2 diabetes mellitus with diabetic neuropathy, unspecified; G20 Parkinson's disease; F32.9 Major depressive disorder, single episode, unspecified; F43.10 Post-traumatic stress disorder, unspecified; Z90.49 Acquired absence of other specified parts of digestive tract; Z98.52 Vasectomy status; Z87.891 Personal history of nicotine dependence; Z79.84 Long term (current) use of oral hypoglycemic drugs; Z79.4 Long term (current) use of insulin; Z79.899 Other long term (current) drug therapy; Z88.1 Allergy status to other antibiotic agents; Z88.2 Allergy status to sulfonamides
CPT/HCPCS: 36415; 70450; 71045; 80053; 81003; 82550; 83605; 83735; 83880; 84443; 84484; 85025; 85610; 85730; 86140; 87040; 93005; 96360; 96361; 99284; A9270-GY

== ENCOUNTER 2019-07-24 13:03 | Observation (INO) | payer OTHER ==
[2019-07-24 13:57] LABS: ABS Basophils 0.1 10^3/ul (0-0.2); ABS Eosinophils 0.4 10^3/ul (0-0.6); ABS Lymphocytes 2.7 10^3/ul (1.0-4.8); ABS Monocytes 0.6 10^3/ul (0-0.8); ABS Neutrophils 4.7 10^3/ul (1.5-7.7); Eosinophil % 4.9 %; Hematocrit 38 % (42-52); Hemoglobin 12.9 g/dL (14.0-18.0); Lymphocyte % 31.4 %; Mean Corpuscular HGB Conc 34 g/dL (31-36); Mean Corpuscular Hemoglobin 31 pg (27-31); Mean Corpuscular Volume 90 fL (80-94); Mean Platelet Volume 9.3 fL (7.4-10.4); Platelet Count 192 10^3/uL (150-450); Red Blood Count 4.24 10^6 /uL (4.18-5.48); Red Cell Distribution Width 13 % (10-15); White Blood Count 8.5 10^3/uL (3.5-10.8)
[2019-07-24 14:13] LABS: Albumin 4.1 g/dL (3.2-5.2); Albumin/Globulin Ratio 1.3 (1-3); BUN/Creatinine Ratio 22.2 (8-20); Calcium 9.7 mg/dL (8.6-10.3); EGFR African American 48.6 (>60); EGFR Non-African American 40.2 (>60); Globulin 3.2 g/dL (2-4); INR 1.08 (0.82-1.09); Potassium 4.4 mmol/L (3.5-5.0); Total Bilirubin 1.2 mg/dL (0.2-1.0); Total Protein 7.3 g/dL (6.4-8.9)
--- NOTE | 2019-07-24 15:43 | ED ---
HPI Chest Pain - HPI Summary HPI Summary: Patient is a 74 y/o M w/ Hx of agent orange, HTN, HLD, and diabetes who presents to [facility] with complaints of sharp "twinges" of pain at his chest for the past couple of days. He states that he went for a regular check-up appointment at [place] [facility] and had mentioned this Sx. EKG was done and was unconcerning. However, patient was advised to come to ED for evaluation. Patient denies radiation of pain or tingling/numbness. No SOB, N/V/D, diaphoresis, bloody/dark stool noted. He denies aggravating factors. Most recent episode of pain occurred this fnp, patient states that he was awoken from sleep by his pain. Currently, he states that he feels fatigued. He states that he was evaluated for similar Sx a few years ago, most recent nuclear stress test was a few years ago as well. He denies Hx of [place] or cardiac stent placement. Fever, chills, erythema of eyes, sore throat, SOB, cough, abdominal pain, N/V, dysuria, hematuria, myalgia, edema, rash, or dizziness are not reported. Home medications and allergies are reviewed. - History of Current Complaint Chief Complaint: EDChestPainROMI Time Seen by Provider: 07/24/19 15:20 Hx Obtained From: Patient Onset/Duration: Started Days Ago Timing: Intermittent Current Severity: None Pain Intensity: 0 Pain Scale Used: 0-10 Numeric Chest Pain Radiates: No Aggravating Factor(s): Nothing Associated Signs and Symptoms: Positive: Chest Pain, Other: - Fever, chills, erythema of eyes, sore throat, SOB, cough, abdominal pain, N/V, dysuria, hematuria, myalgia, edema, rash, or dizziness are not reported. Negative: Numbness, Tingling, Dizziness, Shortness of Breath, Swelling, Fever, Chills, Nausea, Cough, Productive Cough, Nonproductive Cough, Abdominal Pain, Calf Pain/ Swelling, Vomiting, Edema - Allergy/Home Medications Allergies/Adverse Reactions: Allergies Allergy/AdvReac Type Severity Reaction Status Date / Time poison aimee extract Allergy Unknown Hives Verified 05/02/19 10:08 sulfamethoxazole Allergy Unknown Verified 05/02/19 10:08 [From Bactrim] Reaction Details trimethoprim [From Bactrim] Allergy Unknown Verified 05/02/19 10:08 Reaction Details Home Medications: Home Medications Capsaicin [Arthritis Pain Relieving] 0.075 % TOPICAL QID PRN 07/24/19 [History Confirmed 07/24/19] DULoxetine DR DUARTE* [Cymbalta CAP*] 20 mg PO DAILY 07/24/19 [History Confirmed ] Dextrose [Glucose] 16 gm PO DAILY PRN 07/24/19 [History Confirmed 07/24/19] Ferrous Sulfate TAB* 325 mg PO DAILY 07/24/19 [History Confirmed 07/24/19] Fluoride (Sodium) [Prevident 5000 Plus] 1.1 % PO DAILY 07/24/19 [History Confirmed 07/24/19] Glucagon,Human Recombinant [Glucagon Emergency Kit] 1 mg INJ ONCE PRN 07/24/19 [ History Confirmed 07/24/19] Insulin Aspart [Novolog Penfill 100 units/ml 5 ml x 3 pens] 0 - 100 units SUBCUT TID WITH MEALS 07/24/19 [History Confirmed 07/24/19] Insulin Glargine,Hum.rec.anlog [Lantus Solostar 100 units/ml 3 ml x 5 PENS] 30 units SUBCUT DAILY 07/24/19 [History Confirmed 07/24/19] Methocarbamol TAB* [Robaxin 500 MG TAB*] 500 mg PO TID PRN 07/24/19 [History Confirmed 07/24/19] Pancrelipase (NF) [Creon (NF)] 18,000 units PO TID WITH MEALS 07/24/19 [History Confirmed 07/24/19] Pantoprazole TAB (NF) [Protonix TAB (NF)] 20 mg PO DAILY 07/24/19 [History Confirmed 07/24/19] lisinopriL [Lisinopril] 20 mg PO DAILY 07/24/19 [History Confirmed 07/24/19] traMADol TAB* [Ultram*] 25 - 50 mg PO Q6HR PRN 07/24/19 [History Confirmed 07/24] PMH/Surg Hx/FS Hx/Imm Hx Endocrine/Hematology History: Reports: Hx Diabetes, Hx Thyroid Disease, Hx Anemia Denies: Hx Anticoagulant Therapy Cardiovascular History: Reports: Hx Angina, Hx Hypercholesterolemia, Hx Hypertension, Other Cardiovascular Problems/Disorders - "heart enlarged" Denies: Hx Coronary Artery Disease, Hx Myocardial Infarction, Hx Pacemaker/ ICD, Hx Valvular Heart Disease Respiratory History: Reports: Hx Sleep Apnea Denies: Hx Asthma, Hx Chronic Obstructive Pulmonary Disease (COPD) GI History: Reports: Hx Gastroesophageal Reflux Disease, Other GI Disorders - Barretts Esophagus History: Reports: Hx Acute Renal Failure, Hx Benign Prostatic Hyperplasia, Hx Chronic Renal Failure - stage 3, Other Problems/Disorders - pt states has "kidney problems", seeing specialist in january Musculoskeletal History: Reports: Hx Arthritis, Hx Back Problems, Other Musculoskeletal History - Frequent falls r/t loss of foot sensation Sensory History: Reports: Hx Contacts or Glasses, Hx Hearing Aid - x2, Hx Hearing Problem - AGUA CALIENTE, tinnitis, Other Sensory Impairments Opthamlomology History: Reports: Hx Contacts or Glasses, Other Sensory Impairments Neurological History: Reports: Other Neuro Impairments/Disorders - diabetic neuropathy, parkinson's, PAIN CLINIC PT. Denies: Hx Headaches Psychiatric History: Reports: Hx Depression, Hx Post Traumatic Stress Disorder Denies: Hx Panic Disorder, Hx Substance Abuse - Surgical History Surgery Procedure, Year, and Place: cholecystectomy. vasectomy Hx Anesthesia Reactions: No Infectious Disease History: No Infectious Disease History: Denies: Traveled Outside the [place] in Last 30 Days - Family History Known Family History: Positive: Other - Cancer Negative: Cardiac Disease - Social History Alcohol Use: Rare Alcohol Amount: couple beers/week Substance Use Type: Reports: None Smoking Status (MU): Former Smoker Type: Cigarettes Have You Smoked in the Last Year: No Review of Systems Positive: Fatigue. Negative: Fever, Chills, Skin Diaphoresis Negative: Erythema Negative: Sore Throat Positive: Chest Pain Negative: Shortness Of Breath, Cough Gastrointestinal: Other - negative - blood in stool Negative: Abdominal Pain, Vomiting, Diarrhea, Nausea Negative: dysuria, hematuria Negative: Myalgia, Edema Negative: Rash Neurological: Other - negative - dizziness All Other Systems Reviewed And Are Negative: Yes Physical Exam - Summary Physical Exam Summary: Constitutional: Well-developed, Well-nourished, Alert. (-) Distressed Skin: Warm, Dry HENT: Normocephalic; Atraumatic Eyes: Conjunctiva normal Neck: Musculoskeletal ROM normal neck. (-) JVD, (-) Stridor, (-) Tracheal deviation Cardio: Rhythm regular, rate normal, Heart sounds normal; Intact distal pulses; The pedal pulses are 2+ and symmetric. Radial pulses are 2+ and symmetric. (-) Murmur Pulmonary/Chest wall: Effort normal. (-) Respiratory distress, (-) Wheezes, (-) Rales Abd: Soft, (-) tenderness, (-) Distension, (-) Guarding, (-) Rebound Musculoskeletal: (-) Edema Lymph: (-) Cervical adenopathy Neuro: Alert, Oriented x3 Psych: Mood and affect Normal Triage Information Reviewed: Yes Vital Signs On Initial Exam: Initial Vitals Temp Pulse Resp BP Pulse Ox 98.3 F 77 18 135/71 98 07/24/19 13:15 07/24/19 13:15 07/24/19 13:15 07/24/19 13:15 07/24/19 13:15 Vital Signs Reviewed: Yes Procedures - Sedation Patient Received Moderate/Deep Sedation with Procedure: No Diagnostics - Vital Signs Vital Signs Temp Pulse Resp BP Pulse Ox 07/24/19 15:21 81 24 138/77 96 07/24/19 15:20 13 07/24/19 13:15 98.3 F 77 18 135/71 98 - Laboratory Lab Results: Lab Results 07/24/19 07/24/19 07/24/19 Range/Units 13:38 13:38 13:38 WBC 8.5 (3.5-10.8) 10^3/uL RBC 4.24 (4.18-5.48) 10^6 /uL Hgb 12.9 L (14.0-18.0) g/dL Hct 38 L (42-52) % MCV 90 (80-94) fL MCH 31 (27-31) pg MCHC 34 (31-36) g/dL RDW 13 (10-15) % Plt Count 192 (150-450) 10^3/uL MPV 9.3 (7.4-10.4) fL Neut % (Auto) 55.5 % Lymph % (Auto) 31.4 % [place] % (Auto) 7.0 % Eos % (Auto) 4.9 % Baso % (Auto) 1.2 % Absolute Neuts (auto) 4.7 (1.5-7.7) 10^3/ul Absolute Lymphs (auto) 2.7 (1.0-4.8) 10^3/ul Absolute Monos (auto) 0.6 (0-0.8) 10^3/ul Absolute Eos (auto) 0.4 (0-0.6) 10^3/ul Absolute Basos (auto) 0.1 (0-0.2) 10^3/ul Absolute Nucleated RBC 0.0 10^3/ul Nucleated RBC % 0.0 INR (Anticoag Therapy) 1.08 (0.82-1.09) Sodium 140 (135-145) mmol/L Potassium 4.4 (3.5-5.0) mmol/L Chloride 105 (101-111) mmol/L Carbon Dioxide 29 (22-32) mmol/L Anion Gap 6 (2-11) mmol/L BUN 37 H (6-24) mg/dL Creatinine 1.67 H (0.67-1.17) mg/dL Est GFR ( Amer) 48.6 (>60) Est GFR (Non-Af Amer) 40.2 (>60) BUN/Creatinine Ratio 22.2 H (8-20) Glucose 128 H (70-100) mg/dL Calcium 9.7 (8.6-10.3) mg/dL Total Bilirubin 1.20 H (0.2-1.0) mg/dL AST 23 (13-39) U/L ALT 24 (7-52) U/L Alkaline Phosphatase 76 (34-104) U/L Troponin I 0.00 (<0.03) ng/mL Total Protein 7.3 (6.4-8.9) g/dL Albumin 4.1 (3.2-5.2) g/dL Globulin 3.2 (2-4) g/dL Albumin/Globulin Ratio 1.3 (1-3) Result Diagrams: 07/24/19 13:38 07/24/19 13:38 Lab Statement: Any lab studies that have been ordered have been reviewed, and results considered in the medical decision making process. - Radiology CXR Radiology Interpretation Completed By: Radiologist Summary of Radiographic Findings: IMPRESSION: NO ACTIVE CARDIOPULMONARY DISEASE. THIS REPORT WAS REVIEWED BY ED PHYSICIAN. - EKG 1306 Cardiac Rate: NL - rate of 80 BPM EKG Rhythm: Sinus Rhythm Summary of EKG Findings: EKG showed NSR with rate of 80 BPM, no STEMI. ED physician has reviewed and interpreted this EKG. Chest Pain Course/Dx - Course Course Of Treatment: Patient is a 74 y/o M w/ Hx of agent orange, HTN, HLD, and diabetes who presents to [facility] with complaints of sharp "twinges" of pain at his chest for the past couple of days. He states that he went for a regular check-up appointment at [place] [facility] and had mentioned this Sx. EKG was done and was unconcerning. However, patient was advised to come to ED for evaluation. Patient denies radiation of pain or tingling/numbness. No SOB, N/V/D, diaphoresis, bloody/dark stool noted. He denies aggravating factors. Most recent episode of pain occurred this fnp, patient states that he was awoken from sleep by his pain. Currently, he states that he feels fatigued. He states that he was evaluated for similar Sx a few years ago, most recent nuclear stress test was a few years ago as well. He denies Hx of [place] or cardiac stent placement. Physical exam is unremarkable. Trop was negative. Other bloodwork was within normal limits with exception of Hgb 12.9, Hct 38, BUN 37, creatinine 1.67, BUN/creatinine ratio 22.2, glucose 128, total bilirubin 1.2. CXR IMPRESSION: NO ACTIVE CARDIOPULMONARY DISEASE. EKG showed NSR with rate of 80 BPM, no STEMI. HEART score of 4 noted. Patient's case was discussed with Dr. Jay, Dr. Jay accepts for admission. - Diagnoses Provider Diagnoses: Chest pain - Provider Notifications Discussed Care Of Patient With: Lisa Jay Time Discussed With Above Provider: 15:57 Instructed by Provider To: Other - Patient's case was discussed with Dr. Jay, Dr. Jay accepts for admission. Discharge ED - Sign-Out/Discharge Documenting (check all that apply): Patient Departure - admit All imaging exams completed and their final reports reviewed: Yes - Discharge Plan Condition: Stable Disposition: ADMITTED TO [facility] - Attestation Statements Document Initiated by Scribe: Yes Documenting Scribe: PRASHANTH WALLCAE Provider For Whom Scribe is Documenting (Include Credential): DELBERT BALLESTEROS MD Scribe Attestation: PRASHANTH Laura, scribed for DELBERT BALLESTEROS MD on 07/24/19 at 1726. Status of Scribe Document: Ready
[2019-07-24] MEDS ORDERED: Aspirin 81 mg CHEW TAB* 81 MG TAB.CHEW PO ONE (15:44)
[2019-07-24] MEDS ORDERED: Pregabalin 100 mg CAP (*) PO ONE (15:53)
[2019-07-24] MEDS ORDERED: Pregabalin 50 mg CAP (*) PO ONE (16:00)
[2019-07-24] MEDS ORDERED: Al Hydrox/Mg Hydrox/Simet LIQ* 30 ML UDC PO PRN (16:01)
[2019-07-24] MEDS ORDERED: Acetaminophen TAB* 325 MG PO PRN (16:01)
[2019-07-24] MEDS ORDERED: Temazepam CAP* 15 MG PO PRN (16:01)
[2019-07-24] MEDS ORDERED: Dextrose 50% Syringe 50 ML* 25 GM/50 ML SYRINGE IV PUSH PRN (16:09)
[2019-07-24] MEDS ORDERED: Methocarbamol TAB* 500 MG PO PRN (16:09)
[2019-07-24] MEDS ORDERED: Loperamide CAP* 2 MG PO PRN (16:09)
[2019-07-24] MEDS ORDERED: traMADol TAB* 50 MG PO PRN (16:09)
[2019-07-24 16:41] LABS: Magnesium 1.5 mg/dL (1.9-2.7)
[2019-07-24] MEDS ORDERED: Pancrelipase (NF) 6,000 UNITS CAP.DR PO SCH (17:00)
[2019-07-24] MEDS ORDERED: Magnesium Sulfate 2 GM IV* 2 GM/50 ML BAG IVPB ONE (17:23)
[2019-07-24] MEDS: Insulin LISPRO* 1 UNITS UNIT SUBCUT SCH ×2 (17:49→22:38)
[2019-07-24] MEDS: Magnesium Oxide TAB* 400 MG PO SCH (17:50)
--- NOTE | 2019-07-24 20:07 | HP ---
CC: Devi Hernández NP * HISTORY AND PHYSICAL: DATE OF ADMISSION: 07/24/19 PRIMARY CARE PROVIDER: Devi Hernández NP CHIEF COMPLAINT: Twinging pain in the chest. HISTORY OF PRESENT ILLNESS: Mr. Lafleur is a 74-year-old male with history of diabetes, dyslipidemia, hypertension, who presented to the hospital complaining of twinges in his left chest right underneath the ribcage. The pain occurred spontaneously, woke him up from sleep, lasted 1 to 2 seconds. It is sharp, nonradiating, not associated with shortness of breath or diaphoresis. It is too short to be able to try to move or take a deep breath to see if it gets better or worse with it. Once again, the patient stated that it lasted approximately a second or two. The patient has had those twinges for the past week. They were not associated with exercise. He came into his primary care provider for evaluation and from there he was sent to the ED for evaluation. Here, the ED provider thought that the patient has high risk of coronary artery disease and advised for the patient to be observed overnight for stress test in the morning. Of note, the patient had similar twinges in the chest on the right side in 2013. At that point, he had a cardiac stress test, which was negative. PAST MEDICAL HISTORY: 1. Diabetes type 2, on insulin. 2. Dyslipidemia. 3. Gastroesophageal reflux disease. 4. Obstructive sleep apnea. 5. Depression. 6. Hypertension. 7. Neuropathy. 8. Harris's esophagus. 9. Chronic diarrhea, on Imodium twice a day. 10. Chronic tinnitus. 11. History of chronic lower back pain, under the care of Dr. Page, with epidural injections in the past. MEDICATIONS AT HOME: Include: 1. Ultram 25 to 50 mg every 6 hours p.r.n. 2. Lisinopril 20 mg daily. 3. Flomax 0.4 mg daily. 4. Pregabalin 150 mg 3 times a day. 5. Protonix 20 mg daily. 6. Creon 18,000 units 3 times a day with meals. 7. Robaxin 500 mg 3 times a day p.r.n. 8. Imodium 2 mg every 6 hours, but the patient usually takes twice a day for diarrhea, which is chronic. 9. Levothyroxine 50 mcg daily. 10. Insulin aspart sliding scale. 11. Insulin glargine 30 units daily. 12. Furosemide 40 mg daily. 13. Fluoride (PreviDent) mouthwash daily. 14. Dextrose pills on a p.r.n. basis for hypoglycemia. 15. Duloxetine 20 mg daily. 16. Vitamin D3 2000 units daily. 17. Capsaicin pain relieving cream up to 4 times a day p.r.n. 18. Lipitor 10 mg daily. 19. Aspirin 81 mg daily. FAMILY HISTORY: Positive for mother who in her 80s from leukemia. Father , unknown. SOCIAL HISTORY: The patient smoked approximately 5 years when he was in his 20s. He denies any tobacco or drug use. He drinks alcohol rarely. His surrogate is his . REVIEW OF SYSTEMS: Positive for chronic bilateral ankle edema for which he takes Lasix. Positive for chronic diarrhea with no abdominal pain for which he takes Imodium. All the remaining 12 systems were reviewed with the patient and were otherwise negative. PHYSICAL EXAMINATION GENERAL: The patient is a very pleasant 74-year-old male, who is in no acute distress. The patient is alert and oriented x3. VITAL SIGNS: Blood pressure of 139/64, heart rate of 71 and regular, respiratory rate 16, oxygen saturation 98% on room air, temperature 97.1. HEENT: Head: Atraumatic, normocephalic. Eyes: Pupils are equal, reactive to light and accommodation. Oropharynx is clear. Mucosa moist. NECK: Supple. No JVD. No bruits bilaterally. RESPIRATORY: Clear to auscultation bilaterally. CARDIOVASCULAR: Regular rate and rhythm. No murmur. ABDOMEN: Soft, nontender. Bowel sounds are present in all 4 quadrants. EXTREMITIES: There is trace bilateral ankle edema. Pulses are +2 bilaterally. There is no clubbing or cyanosis. NEUROLOGIC: Speech clear. Cranial nerves II through XII grossly intact. Motor strength is 5/5 bilaterally. DIAGNOSTIC STUDIES/LAB DATA: White blood cell count of 8.5, hemoglobin 12.9, hematocrit 38, and platelets 192. Sodium 140, potassium 4.4, chloride 105, carbon dioxide 37, creatinine of 1.67. Liver function tests unremarkable apart from mild elevation of bilirubin of 1.2 , which is chronic in this patient. Troponin was 0 twice already. Magnesium 1.5. Portable chest x-ray, impression: "No active cardiopulmonary disease." The patient's EKG shows known right bundle branch block with no significant ST changes and that was compared with an EKG from February of 2019. ASSESSMENT AND PLAN: 1. Chest twinges for the past week, with so far negative cardiac workup. The patient's magnesium is low and it is possible that he has muscle spasms from a magnesium level. He is going to be started on magnesium supplementation in the form of mag oxide p.o. In addition, he is going to receive a dose of magnesium sulfate IV. We will follow up with magnesium in the morning. To evaluate for cardiac source of the patient's symptoms, the patient is going to be placed on overnight observation on telemetry monitored bed with followup troponins and the patient agrees to treadmill Myoview in the morning. He stated that he may be unsteady on his feet a little bit and if he is unable to do the treadmill Myoview, he is okay with pharmacologic stress test if he needed to be converted to it. 2. In regards to the patient's diabetes management, the patient received insulin Lantus in the morning. Due to n.p.o. status in the morning, his insulin Lantus is going to be held and he is going to be placed on insulin sliding scale only. 3. The patient has history of chronic kidney disease, stage 3. The patient's creatinine is at baseline. 4. The patient has apparent pancreatic insufficiency and he is going to be continued on pancrelipase daily as previously taken. 5. For his leg swelling, the patient's furosemide is going to be continued. 6. For his hypertension, lisinopril is going to be continued. 7. For hypothyroidism, his levothyroxine is going to be continued. 8. For DVT prophylaxis, the patient is going to be placed on heparin subcutaneously. 9. The patient's code status is full. His surrogate is his . TIME SPENT: Approximately 65 minutes was spent on admission of this patient, more than half that time was spent [id number] with the patient during the interview and physical exam. [id number]/[facility] #: [id number] [place]
[2019-07-24] MEDS: Heparin VIAL(*) 5000 UNITS/ML VIAL (FIVE THOUSAND) SUBCUT SCH (22:38)
[2019-07-24] MEDS: Pregabalin 50 mg CAP (*) PO SCH (22:38)
[2019-07-25] MEDS ORDERED: Levothyroxine TAB* 50 MCG TAB PO SCH (06:00)
[2019-07-25] MEDS: Heparin VIAL(*) 5000 UNITS/ML VIAL (FIVE THOUSAND) SUBCUT SCH ×2 (06:09→15:07)
[2019-07-25 07:33] LABS: BUN/Creatinine Ratio 19.3 (8-20); Calcium 9.1 mg/dL (8.6-10.3); EGFR African American 47.3 (>60); EGFR Non-African American 39.1 (>60); Magnesium 2.1 mg/dL (1.9-2.7); Potassium 4.1 mmol/L (3.5-5.0)
[2019-07-25] MEDS ORDERED: Atorvastatin* 10 MG TAB PO SCH (09:00)
[2019-07-25] MEDS ORDERED: Ferrous Sulfate TAB* 325 MG PO SCH (09:00)
[2019-07-25] MEDS ORDERED: DULoxetine DR CAP* 20 MG CAP.DR PO SCH (09:00)
[2019-07-25] MEDS ORDERED: Tamsulosin CAP* 0.4 MG PO SCH (09:00)
[2019-07-25] MEDS ORDERED: Pantoprazole TAB * 40 MG TAB PO SCH (09:00)
[2019-07-25] MEDS ORDERED: Furosemide TAB* 40 MG PO SCH (09:00)
[2019-07-25] MEDS ORDERED: Aspirin EC TAB* 81 MG TAB.EC PO SCH (09:00)
[2019-07-25] MEDS ORDERED: Lisinopril TAB* 10 MG PO SCH (09:00)
[2019-07-25] MEDS ORDERED: Cholecalciferol TAB* 1000 UNITS PO SCH (09:00)
[2019-07-25] MEDS: Insulin LISPRO* 1 UNITS UNIT SUBCUT SCH ×2 (09:02→13:14)
[2019-07-25] MEDS: Magnesium Oxide TAB* 400 MG PO SCH (10:57)
[2019-07-25] MEDS: Pregabalin 50 mg CAP (*) PO SCH ×2 (10:58→15:07)
[2019-07-25] MEDS: PANCRELIPASE 6000 UNIT PO SCH ×2 (11:01→15:12)
[2019-07-25] MEDS ORDERED: Regadenoson* 0.4 MG/5 ML SYRINGE ONE (11:40)
[2019-07-25] MEDS ORDERED: Aminophylline IV* 25 MG/ML 10 ML VIAL ONE (11:40)
[2019-07-25] MEDS ORDERED: Atropine SYRINGE* 0.1 MG/ML 10 ML SYRINGE (1 MG) ONE (12:15)
[2019-07-25 14:19] LABS: C Reactive Protein 3.63 mg/L (<8.01)
[2019-07-25 14:51] VITALS: BP 130/70
--- NOTE | 2019-07-25 21:06 | DS ---
CC: Devi Hernández NP; Dr. Mei * DISCHARGE SUMMARY: DATE OF ADMISSION: 07/24/19 DATE OF DISCHARGE: 07/25/19 PRIMARY CARE PROVIDER: Devi Hernández NP. DISPOSITION AT DISCHARGE: Home. CONDITION ON DISCHARGE: Stable. DISCHARGE DIAGNOSES: 1. Chest pain with low probability cardiac stress test documented on 07/25/19. 2. Incidentally found 2.2 cm pleural based left-sided lung nodule. RECOMMENDATIONS FOR FOLLOWUP: 1. Follow up with Devi Hernández NP, at the [facility] within 4 to 7 days. 2. The patient is also recommended to call Dr. Mei's office to request an appointment. MEDICATIONS AT DISCHARGE: Medications at discharge and unchanged from admission include: 1. Aspirin 81 mg daily. 2. Lipitor 10 mg daily. 3. Capsaicin cream on a p.r.n. basis. 4. Vitamin D 2000 units daily. 5. Cymbalta 20 mg daily. 6. Ferrous sulfate 325 mg daily. 7. Furosemide 20 mg daily. 8. Insulin as per sliding scale, insulin glargine 13 units daily. 9. Synthroid 50 mcg daily. 10. Lisinopril 20 mg daily. 11. Imodium 2 mg every 6 hours p.r.n. 12. Robaxin 500 mg 3 times a day. 13. Creon 66566 units p.o. 3 times a day with meals. 14. Protonix 20 mg daily. 15. Lyrica 150 mg 3 times a day. 16. Flomax 0.4 mg daily. 17. Ultram 25 to 50 mg on a p.r.n. basis for pain. LABORATORY DATA DURING THE HOSPITAL STAY: Troponin throughout his hospital stay was 0. The patient's C-reactive protein was 3.6. On 07/25/19, sodium of 138, potassium 4.1, chloride 106, carbon dioxide 25. BUN 32, creatinine 1.71. CBC was unchanged from admission, which included white blood cell count of 8.5, hemoglobin of 12.9, hematocrit of 38, and platelets of 192. Cardiac stress test documented on 07/25/19, impression: "No evidence for infarct or ischemia. Possible left lung pulmonary nodule. Recommend CT of chest without contrast for further evaluation." Chest CT obtained on the same day, impression: "There is a pleural based 2.2 cm mixed ground glass and solid lesion with a spiculated border present in the left lobe. This is suspicious for malignant lesion. Recommend PET CT study for further evaluation." HOSPITALIZATION COURSE: Delgado Lafleur is a 74-year-old male with history of diabetes, hypertension, and hyperlipidemia, who presented to the hospital complaining of twitching in the left side of his chest. It is noted on admission the patient has got magnesium level of 1.5 and that was repleted throughout his hospital stay. His magnesium was 2.2 by the time of discharge. Nevertheless, he was deemed high risk for coronary artery disease. It was recommended by the ED provider to be observed for a stress test in the morning. The stress test was performed on 07/25/19 and was low risk with no evidence of ischemia. Incidentally though, the radiologist thought that there may have been a nodule in the left lung when reviewing the CT attenuated images. At that point, CT of the chest was obtained, which showed 2.2 cm pleural based left upper lung nodule. It was spiculated and concerning for malignancy. I discussed the case with Dr. Mei, who stated that she is going to see the patient for a followup to arrange for a PET scan. The patient is aware to call Dr. Mei's office to request a visit in [address] Mei also mentioned that she will need a referral from the primary care provider's office prior to arranging for the patient's followup. Physical exam at discharge is unchanged from admission. The patient is recommended to be discharged home with recommendations as above. [id number]/[facility] #: [id number] [place]
== END 2019-07-25 17:00 | disposition home or self-care (01) ==
LOC: ED 13:03 → MEDTELE 16:01
PROVIDERS: ADMIT Internal Medicine; ATTEND Internal Medicine
DX: R07.9 Chest pain, unspecified (principal); R91.8 Other nonspecific abnormal finding of lung field; R94.31 Abnormal electrocardiogram [ECG] [EKG]; I45.10 Unspecified right bundle-branch block; E78.5 Hyperlipidemia, unspecified; E03.9 Hypothyroidism, unspecified; E78.00 Pure hypercholesterolemia, unspecified; K21.9 Gastro-esophageal reflux disease without esophagitis; I12.9 Hypertensive chronic kidney disease with stage 1 through stage 4 chronic kidney disease, or unspecified chronic kidney disease; E11.22 Type 2 diabetes mellitus with diabetic chronic kidney disease; N18.3 Chronic kidney disease, stage 3 (moderate); F32.9 Major depressive disorder, single episode, unspecified; F43.10 Post-traumatic stress disorder, unspecified; Z79.4 Long term (current) use of insulin; Z79.82 Long term (current) use of aspirin; Z79.899 Other long term (current) drug therapy; Z79.1 Long term (current) use of non-steroidal anti-inflammatories (NSAID); Z88.2 Allergy status to sulfonamides; Z87.891 Personal history of nicotine dependence
CPT/HCPCS: 36415; 71045; 71250; 78452; 80048; 80053; 82947; 83735; 84484; 85025; 85610; 86140; 93005; 93017; 94660; 96365; 96372; 99284; A9270-GY; A9502; G0378; J0280; J0461; J1644; J2785; J3475

== ENCOUNTER 2023-09-29 15:07 | Inpatient (IN) ==
[2023-09-29 16:05] LABS: PCO2 Arterial 39 mmHg (35-45); PO2 Arterial 120 mmHg (80-100)
[2023-09-29] MEDS: Pantoprazole VIAL 40 MG VIAL IV ONE (16:42)
[2023-09-29] MEDS: Acetaminophen IV 1 GM/100ML 1,000 MG/100 ML BAG IV ONE (16:43)
[2023-09-29] MEDS: Piperacillin/Tazobac 3.375 BAG 3.375 GM/100 ML BAG IV ONE (16:43)
[2023-09-29] MEDS: NORMOSOL-R pH 7.4 SEPSIS* BAG 2,190 ML IV ONE (16:43)
[2023-09-29 16:46] LABS: High Sens Troponin Baseline 16 pg/mL (<20)
[2023-09-29 16:55] LABS: ALT 26 U/L (7-52); AST 25 U/L (13-39); Albumin 4.4 g/dL (3.2-5.2); Albumin/Globulin Ratio 1.3 (1-3); Alcohol, S < 13 mg/dL (<13); Alkaline Phosphatase 109 U/L (35-149); Anion Gap 9 mmol/L (2-16); Blood Urea Nitrogen 32 mg/dL (6-24); CO2 Carbon Dioxide 26 mmol/L (22-32); Calcium 9.4 mg/dL (8.6-10.3); Chloride 105 mmol/L (101-111); Creatine Kinase 259 U/L (10-223); Creatinine, Serum 1.99 mg/dL (0.67-1.17); Globulin 3.5 g/dL (2-4); Glucose 164 mg/dL (70-100); Lipase 13 U/L (11.0-82.0); Magnesium 1.8 mg/dL (1.9-2.7); Potassium 4.4 mmol/L (3.5-5.0); Sodium 140 mmol/L (135-145); Total Bilirubin 1.8 mg/dL (0.2-1.0); Total Protein 7.9 g/dL (6.4-8.9); eGFR CKD-EPI 33.3 (>60)
[2023-09-29 16:56] LABS: Activated Partial Thrombo Time 32.5 seconds (26.0-38.0); INR 1.1 (0.83-1.13)
[2023-09-29 16:58] LABS: Hemoglobin 15.5 g/dL (13.2-16.3); Mean Corpuscular Hemoglobin 28.9 pg (27-33); Mean Corpuscular Volume 87.6 fL (80-97); Mean Platelet Volume 9.5 fL (7.5-11.2); Platelet Count 185 10^3/uL (150-450); Red Blood Count 5.37 10^6/uL (4.06-5.63); White Blood Count 18.9 10^3/uL (3.6-10.2)
[2023-09-29 17:08] LABS: Urine Appearance Clear; Urine Bacteria Absent /HPF (Absent); Urine Bilirubin Negative (Negative); Urine Blood 2+ (Negative); Urine Color Light-Yellow; Urine Glucose 4+ (>=1000 mg/dL) (Negative); Urine Ketones Negative (Negative); Urine Nitrite Negative (Negative); Urine Protein 3+ (>=300 mg/dL) (Negative); Urine Red Blood Cell Trace(0-2/hpf) /HPF (0-Trace); Urine Squamous Epithelial Cell Present /HPF (Absent); Urine Urobilinogen Negative (Negative); Urine White Blood Cell Trace(0-5/hpf) /HPF (0-Trace)
[2023-09-29 17:17] LABS: ABS Basophils 0.1 10^3/uL (0.0-0.1); ABS Eosinophils 0.1 10^3/uL (0.0-0.5); ABS Lymphocytes 0.8 10^3/uL (1.0-4.8); ABS Monocytes 0.8 10^3/uL (0.0-1.1); ABS Neutrophils 17.2 10^3/uL (1.5-7.6); ABS Nucleated RBC 0.01 10^3/ul; Eosinophil % 0.3 %; Lymphocyte % 4.1 %; Nucleated Red Blood Cells % 0.1 %/100WBC (0.0-0.8)
[2023-09-29 17:34] LABS: High Sensitivity Troponin 1 Hr 17 pg/mL (<20)
[2023-09-29] MEDS: Iodixanol (CONTRAST) 320 MG/ML 100 ML SDV IV ONE (18:03)
[2023-09-29] MEDS ORDERED: Dextrose 50% Syringe 50 ml 25 GM/50 ML SYRINGE IV PUSH PRN (21:00)
[2023-09-29] MEDS: ZOSYN 3.375 GM Q8H per EXTENDED INFUSION IV SCH (21:50)
[2023-09-29] MEDS: Enoxaparin 30 MG/0.3 ML SYR SUBCUT SCH (21:59)
[2023-09-29] MEDS ORDERED: Zosyn per Pharmacy NOTE FOLLOW UP SCH (22:00)
[2023-09-30] MEDS ORDERED: Albuterol HFA INHALER 8 gm MDI INH PRN (05:50)
[2023-09-30] MEDS: Empagliflozin 25 MG TAB PO SCH (09:12)
[2023-09-30] MEDS: DICLOFENAC 0.1% BOTH EYES SCH (10:44)
[2023-09-30] MEDS: DIFLUPREDNATE 0.05% RIGHT EYE SCH (10:44)
[2023-09-30] MEDS: LOTEPREDNOL ETABONATE RIGHT EYE SCH (10:45)
[2023-09-30] MEDS ORDERED: Azithromycin 500 mg/250 ml NS 500 MG/250 ML BAG IVPB SCH (11:00)
[2023-09-30] MEDS: PANCRELIPASE 6000 UNIT PO SCH (12:56)
[2023-09-30] MEDS: Doxycycline 100 MG in NS 0.9% 250 ML BAG IVPB SCH (13:15)
[2023-10-01 06:20] LABS: ABS Basophils 0.1 10^3/uL (0.0-0.1); ABS Eosinophils 0.4 10^3/uL (0.0-0.5); ABS Lymphocytes 1.9 10^3/uL (1.0-4.8); ABS Monocytes 0.8 10^3/uL (0.0-1.1); ABS Neutrophils 7.2 10^3/uL (1.5-7.6); ABS Nucleated RBC 0.02 10^3/ul; Eosinophil % 3.9 %; Hemoglobin 12.6 g/dL (13.2-16.3); Mean Corpuscular Hemoglobin 29.3 pg (27-33); Mean Corpuscular Hgb Conc 33.1 g/dL (31-36); Mean Corpuscular Volume 88.5 fL (80-97); Mean Platelet Volume 9.9 fL (7.5-11.2); Nucleated Red Blood Cells % 0.1 %/100WBC (0.0-0.8); Platelet Count 142 10^3/uL (150-450); Red Blood Count 4.29 10^6/uL (4.06-5.63); Red Cell Distribution Width 14.6 % (12-17); White Blood Count 10.3 10^3/uL (3.6-10.2)
[2023-10-01 06:55] LABS: Calcium 8.2 mg/dL (8.6-10.3); Creatinine, Serum 2.16 mg/dL (0.67-1.17); Magnesium 1.8 mg/dL (1.9-2.7); Potassium 4.1 mmol/L (3.5-5.0); eGFR CKD-EPI 30.2 (>60)
[2023-10-01] MEDS: Magnesium Sulfate 2 gm BAG 2 GM/50 ML BAG IVPB ONE (10:59)
[2023-10-01] MEDS ORDERED: Sulfur Hexaflouride MICROSPHR 25 MG VIAL ONE (15:30)
[2023-10-01] MEDS ORDERED: Vancomycin per Pharmacy 1 EA NOTE FOLLOW UP PRN (17:29)
[2023-10-01] MEDS: Vancomycin 2,000 MG in NS 0.9% 500 ml BAG 500 ML IVPB ONE (19:46)
[2023-10-01 19:49] LABS: Body Fluid Source Pleural Fluid
[2023-10-01 19:50] LABS: Body Fluid Appearance Bloody
[2023-10-01 20:04] LABS: Body Fluid Total Nucleated 102 /mcL
[2023-10-01 20:35] LABS: Body Fluid Mono 18 %; Body Fluid Total Cells Counted 44
[2023-10-02 06:36] LABS: Calcium 8.5 mg/dL (8.6-10.3); Creatinine, Serum 1.97 mg/dL (0.67-1.17); Magnesium 1.9 mg/dL (1.9-2.7); Potassium 4.2 mmol/L (3.5-5.0); Vancomycin Random 16.1 mcg/mL; eGFR CKD-EPI 33.7 (>60)
[2023-10-02] MEDS: Vancomycin Random Level NOTE FOLLOW UP ONE (08:00)
[2023-10-02] MEDS: Vancomycin 1,250 MG in NS 0.9% 250 ml 250 ML IVPB SCH (18:46)
[2023-10-03 07:02] LABS: ABS Basophils 0.1 10^3/uL (0.0-0.1); ABS Eosinophils 0.6 10^3/uL (0.0-0.5); ABS Lymphocytes 1.9 10^3/uL (1.0-4.8); ABS Monocytes 0.9 10^3/uL (0.0-1.1); ABS Neutrophils 5.9 10^3/uL (1.5-7.6); Eosinophil % 6.5 %; Hematocrit 37.8 % (38-53); Hemoglobin 12.3 g/dL (13.2-16.3); Lymphocyte % 20.7 %; Mean Corpuscular Hemoglobin 28.5 pg (27-33); Mean Corpuscular Hgb Conc 32.6 g/dL (31-36); Mean Corpuscular Volume 87.5 fL (80-97); Mean Platelet Volume 8.9 fL (7.5-11.2); Platelet Count 182 10^3/uL (150-450); Red Blood Count 4.33 10^6/uL (4.06-5.63); Red Cell Distribution Width 14.2 % (12-17); White Blood Count 9.4 10^3/uL (3.6-10.2)
[2023-10-03 07:44] LABS: Calcium 8.5 mg/dL (8.6-10.3); Creatinine, Serum 1.94 mg/dL (0.67-1.17); Magnesium 1.8 mg/dL (1.9-2.7); Potassium 4.2 mmol/L (3.5-5.0); eGFR CKD-EPI 34.4 (>60)
[2023-10-03 14:13] LABS: Albumin, BF 1.9 g/dL; Fluid Type, Albumin PLEURAL FLUID; Lactate Dehydrogenase, BF 194 U/L
[2023-10-03 14:14] LABS: Fluid Type, Protein, Total PLEURAL FLUID; Glucose, BF 150 mg/dL; Total Protein, BF 3.2 g/dL
[2023-10-04 06:30] LABS: ABS Basophils 0.1 10^3/uL (0.0-0.1); ABS Eosinophils 0.7 10^3/uL (0.0-0.5); ABS Lymphocytes 1.8 10^3/uL (1.0-4.8); ABS Monocytes 0.8 10^3/uL (0.0-1.1); ABS Nucleated RBC 0.02 10^3/ul; Eosinophil % 6.6 %; Hematocrit 39.8 % (38-53); Hemoglobin 13.3 g/dL (13.2-16.3); Lymphocyte % 17.4 %; Mean Corpuscular Hemoglobin 29.3 pg (27-33); Mean Corpuscular Hgb Conc 33.4 g/dL (31-36); Mean Corpuscular Volume 87.6 fL (80-97); Mean Platelet Volume 8.9 fL (7.5-11.2); Nucleated Red Blood Cells % 0.2 %/100WBC (0.0-0.8); Platelet Count 198 10^3/uL (150-450); Red Blood Count 4.54 10^6/uL (4.06-5.63); Red Cell Distribution Width 14.2 % (12-17); White Blood Count 10.5 10^3/uL (3.6-10.2)
[2023-10-04 06:52] LABS: Calcium 8.6 mg/dL (8.6-10.3); Creatinine, Serum 1.87 mg/dL (0.67-1.17); Magnesium 1.9 mg/dL (1.9-2.7); Potassium 4.2 mmol/L (3.5-5.0); eGFR CKD-EPI 35.9 (>60)
[2023-10-04 14:27] VITALS: BP 133/86
[2023-10-04] MEDS ORDERED: Vancomycin Trough Check NOTE FOLLOW UP ONE (17:30)
== END 2023-10-04 17:15 | disposition home or self-care (01) | DRG 871 ==
LOC: EDHOLD 15:07 → ED 15:07 → SUATTDRO 20:39 → MEDTELE 10-01 02:02 → MED 10-02 18:37
PROVIDERS: ADMIT Hospitalist; ATTEND Student in an Organized Health Care Education/Training Program

== ENCOUNTER 2023-11-08 11:13 | Inpatient (IN) ==
[2023-11-08] MEDS ORDERED: Vancomycin 1,500 MG in NS 0.9% 250 ml 250 ML IVPB ONE (11:19)
[2023-11-08] MEDS: Cefepime 2 GM in Dextrose 2 GM/50 ML BAG IV ONE (11:36)
[2023-11-08] MEDS ORDERED: Ondansetron 4 mg VIAL 2 MG/ML 2 ml VIAL ONE (11:38)
[2023-11-08] MEDS: Lactated Ringers 1000 ml BAG 1,000 ML IV ONE (11:41)
[2023-11-08 12:22] LABS: Hematocrit 45.9 % (38-53); Mean Corpuscular Hemoglobin 28.7 pg (27-33); Mean Corpuscular Hgb Conc 32.7 g/dL (31-36); Mean Corpuscular Volume 87.9 fL (80-97); Mean Platelet Volume 9.6 fL (7.5-11.2); Platelet Count 272 10^3/uL (150-450); Red Blood Count 5.22 10^6/uL (4.06-5.63); Red Cell Distribution Width 14.4 % (12-17); White Blood Count 18.9 10^3/uL (3.6-10.2)
[2023-11-08 12:23] LABS: ABS Basophils 0.1 10^3/uL (0.0-0.1); ABS Eosinophils 0.3 10^3/uL (0.0-0.5); ABS Lymphocytes 1.7 10^3/uL (1.0-4.8); ABS Neutrophils 15.8 10^3/uL (1.5-7.6); ABS Nucleated RBC 0.03 10^3/ul; Eosinophil % 1.4 %; Lymphocyte % 9.1 %; Nucleated Red Blood Cells % 0.2 %/100WBC (0.0-0.8)
[2023-11-08 12:33] LABS: ALT 35 U/L (7-52); AST 48 U/L (13-39); Albumin 4.2 g/dL (3.2-5.2); Albumin/Globulin Ratio 1.3 (1-3); Alkaline Phosphatase 124 U/L (35-149); Anion Gap 9 mmol/L (2-16); Blood Urea Nitrogen 32 mg/dL (6-24); CO2 Carbon Dioxide 25 mmol/L (22-32); Calcium 9.4 mg/dL (8.6-10.3); Chloride 104 mmol/L (101-111); Creatinine, Serum 2.18 mg/dL (0.67-1.17); Globulin 3.3 g/dL (2-4); Glucose 275 mg/dL (70-100); Potassium 4.2 mmol/L (3.5-5.0); Sodium 138 mmol/L (135-145); Total Bilirubin 1.3 mg/dL (0.2-1.0); Total Protein 7.5 g/dL (6.4-8.9); eGFR CKD-EPI 29.9 (>60)
[2023-11-08 12:47] LABS: Urine Appearance Clear; Urine Bacteria Absent /HPF (Absent); Urine Bilirubin Negative (Negative); Urine Blood 1+ (Negative); Urine Color Light-Yellow; Urine Glucose 4+ (>=1000 mg/dL) (Negative); Urine Ketones Negative (Negative); Urine Nitrite Negative (Negative); Urine Protein 2+ (>=100 mg/dL) (Negative); Urine Red Blood Cell Trace(0-2/hpf) /HPF (0-Trace); Urine Specific Gravity 1.017 (1.002-1.030); Urine Urobilinogen Negative (Negative); Urine White Blood Cell Trace(0-5/hpf) /HPF (0-Trace); Urine pH 5.5 (5.0-8.0)
[2023-11-08] MEDS ORDERED: Ondansetron 4 mg VIAL 2 MG/ML 2 ml VIAL IV PRN (12:48)
[2023-11-08 13:33] LABS: PCO2 Arterial 38 mmHg (35-45); PO2 Arterial 86 mmHg (80-100)
[2023-11-08 13:39] LABS: High Sens Troponin Baseline 8 pg/mL (<20)
[2023-11-08 13:40] LABS: High Sensitivity Troponin 1 Hr 9 pg/mL (<20)
[2023-11-08 13:55] LABS: Creatine Kinase 206 U/L (10-223)
[2023-11-08] MEDS: Vancomycin 1,750 MG in NS 0.9% 500 ml BAG 500 ML IVPB ONE (13:57)
[2023-11-08] MEDS ORDERED: Vancomycin per Pharmacy 1 EA NOTE FOLLOW UP SCH (14:00)
[2023-11-08 14:06] LABS: Lipase < 10 U/L (11.0-82.0)
[2023-11-08] MEDS: Pancrelipase 5,000 units CAP PO SCH (15:54)
[2023-11-08] MEDS: Heparin 5000 UNITS/ML 1 mL VIAL SUBCUT SCH (15:58)
[2023-11-08] MEDS: Dextran 70/Hypromellose Tears Eye Drops 15 ml BTL (for Artificials Tears) BOTH EYES SCH (16:01)
[2023-11-08] MEDS: DIFLUPREDNATE 0.05% RIGHT EYE SCH (20:57)
[2023-11-08] MEDS: Cefepime 2 GM in Dextrose 2 GM/50 ML BAG IV SCH (23:53)
[2023-11-09 04:49] LABS: ABS Basophils 0.1 10^3/uL (0.0-0.1); ABS Eosinophils 0.2 10^3/uL (0.0-0.5); ABS Lymphocytes 2.2 10^3/uL (1.0-4.8); ABS Monocytes 1.1 10^3/uL (0.0-1.1); Eosinophil % 1.1 %; Hematocrit 35.8 % (38-53); Hemoglobin 11.8 g/dL (13.2-16.3); Lymphocyte % 14.4 %; Mean Corpuscular Hemoglobin 28.7 pg (27-33); Mean Corpuscular Hgb Conc 32.8 g/dL (31-36); Mean Corpuscular Volume 87.4 fL (80-97); Mean Platelet Volume 9.2 fL (7.5-11.2); Platelet Count 165 10^3/uL (150-450); Red Cell Distribution Width 14.6 % (12-17); White Blood Count 15.6 10^3/uL (3.6-10.2)
[2023-11-09 05:28] LABS: Albumin 3.1 g/dL (3.2-5.2); Albumin/Globulin Ratio 1.4 (1-3); Calcium 8.1 mg/dL (8.6-10.3); Creatinine, Serum 2.16 mg/dL (0.67-1.17); Globulin 2.2 g/dL (2-4); Magnesium 1.7 mg/dL (1.9-2.7); Potassium 4.4 mmol/L (3.5-5.0); Total Bilirubin 1.8 mg/dL (0.2-1.0); Total Protein 5.3 g/dL (6.4-8.9); Vancomycin Random 11.9 mcg/mL; eGFR CKD-EPI 30.2 (>60)
[2023-11-09] MEDS: Vancomycin Random Level NOTE FOLLOW UP ONE (06:14)
[2023-11-09] MEDS: Magnesium Sulfate 2 gm BAG 2 GM/50 ML BAG IVPB ONE (06:18)
[2023-11-09] MEDS: Cholecalciferol (VIT D3) 1,000 unit TAB PO SCH (08:39)
[2023-11-09] MEDS: Aspirin EC 81 mg TAB.EC (enteric coated) PO SCH (08:42)
[2023-11-09] MEDS: Insulin GLARGINE 100 un/ml 10 ml VIAL SUBCUT SCH (08:43)
[2023-11-09] MEDS ORDERED: Dextrose 50% Syringe 50 ml 25 GM/50 ML SYRINGE IV PUSH PRN (08:45)
[2023-11-09] MEDS: Vancomycin 1,250 MG in NS 0.9% 250 ml 250 ML IVPB ONE (08:52)
[2023-11-09] MEDS ORDERED: Polyethylene Glycol 3350 17 GM PACKET PO SCH (09:00)
[2023-11-09] MEDS: Pancrelipase 5,000 units CAP PO SCH (10:16)
[2023-11-10 04:26] LABS: ABS Basophils 0.1 10^3/uL (0.0-0.1); ABS Eosinophils 0.5 10^3/uL (0.0-0.5); ABS Lymphocytes 1.4 10^3/uL (1.0-4.8); ABS Monocytes 0.8 10^3/uL (0.0-1.1); ABS Neutrophils 9.9 10^3/uL (1.5-7.6); ABS Nucleated RBC 0.01 10^3/ul; Eosinophil % 4.1 %; Hematocrit 36.7 % (38-53); Hemoglobin 12.2 g/dL (13.2-16.3); Lymphocyte % 10.9 %; Mean Corpuscular Hemoglobin 29.1 pg (27-33); Mean Corpuscular Hgb Conc 33.1 g/dL (31-36); Mean Corpuscular Volume 87.8 fL (80-97); Mean Platelet Volume 9.2 fL (7.5-11.2); Platelet Count 157 10^3/uL (150-450); Red Blood Count 4.18 10^6/uL (4.06-5.63); Red Cell Distribution Width 14.6 % (12-17); White Blood Count 12.7 10^3/uL (3.6-10.2)
[2023-11-10 05:03] LABS: Calcium 8.4 mg/dL (8.6-10.3); Creatinine, Serum 1.88 mg/dL (0.67-1.17); Potassium 4.5 mmol/L (3.5-5.0); Vancomycin Random 14.6 mcg/mL; eGFR CKD-EPI 35.7 (>60)
[2023-11-10] MEDS: Vancomycin Random Level NOTE FOLLOW UP ONE (06:07)
[2023-11-10] MEDS: Vancomycin 1,000 MG - ED ONCE IVPB ONE (08:57)
[2023-11-10] MEDS: Miconazole 2% Top Powder BTL TOPICAL SCH (20:51)
[2023-11-11 04:25] LABS: ABS Basophils 0.1 10^3/uL (0.0-0.1); ABS Eosinophils 0.5 10^3/uL (0.0-0.5); ABS Lymphocytes 1.8 10^3/uL (1.0-4.8); ABS Neutrophils 7.6 10^3/uL (1.5-7.6); Eosinophil % 4.5 %; Hematocrit 34.9 % (38-53); Hemoglobin 11.8 g/dL (13.2-16.3); Lymphocyte % 16.2 %; Mean Corpuscular Hemoglobin 29.3 pg (27-33); Mean Corpuscular Hgb Conc 33.8 g/dL (31-36); Mean Corpuscular Volume 86.5 fL (80-97); Mean Platelet Volume 8.9 fL (7.5-11.2); Platelet Count 170 10^3/uL (150-450); Red Blood Count 4.03 10^6/uL (4.06-5.63); Red Cell Distribution Width 14.3 % (12-17); White Blood Count 10.9 10^3/uL (3.6-10.2)
[2023-11-11] MEDS: Vancomycin Random Level NOTE FOLLOW UP ONE (06:20)
[2023-11-11 06:24] LABS: Calcium 8.3 mg/dL (8.6-10.3); Creatinine, Serum 1.7 mg/dL (0.67-1.17); Magnesium 1.9 mg/dL (1.9-2.7); Potassium 4.3 mmol/L (3.5-5.0); Vancomycin Random 14.8 mcg/mL; eGFR CKD-EPI 40.2 (>60)
[2023-11-11] MEDS: Vancomycin 1000 MG in NS 0.9% 250 ML IVPB SCH (08:48)
[2023-11-11] MEDS: Enoxaparin 40 MG/0.4 ML SYR SUBCUT SCH (20:19)
[2023-11-12] MEDS: Albuterol HFA INHALER 8 gm MDI INH PRN (23:01)
[2023-11-13 05:23] LABS: ABS Basophils 0.1 10^3/uL (0.0-0.1); ABS Eosinophils 0.6 10^3/uL (0.0-0.5); ABS Lymphocytes 1.6 10^3/uL (1.0-4.8); ABS Monocytes 1.2 10^3/uL (0.0-1.1); ABS Neutrophils 7.1 10^3/uL (1.5-7.6); ABS Nucleated RBC 0.01 10^3/ul; Hematocrit 33.9 % (38-53); Hemoglobin 11.3 g/dL (13.2-16.3); Lymphocyte % 15.1 %; Mean Corpuscular Hemoglobin 28.9 pg (27-33); Mean Corpuscular Hgb Conc 33.3 g/dL (31-36); Mean Corpuscular Volume 86.7 fL (80-97); Mean Platelet Volume 8.9 fL (7.5-11.2); Nucleated Red Blood Cells % 0.1 %/100WBC (0.0-0.8); Platelet Count 201 10^3/uL (150-450); Red Blood Count 3.91 10^6/uL (4.06-5.63); Red Cell Distribution Width 14.1 % (12-17); White Blood Count 10.7 10^3/uL (3.6-10.2)
[2023-11-13 05:47] LABS: Calcium 8.2 mg/dL (8.6-10.3); Creatinine, Serum 1.87 mg/dL (0.67-1.17); Magnesium 1.9 mg/dL (1.9-2.7); Potassium 4.1 mmol/L (3.5-5.0); eGFR CKD-EPI 35.9 (>60)
[2023-11-13 08:46] LABS: INR 1.16 (0.83-1.13)
[2023-11-13] MEDS ORDERED: Sulfur Hexaflouride MICROSPHR 25 MG VIAL ONE (09:13)
[2023-11-13 14:58] LABS: Body Fluid Total Nucleated 43 /mcL
[2023-11-13 15:18] LABS: Body Fluid Appearance Cloudy; Body Fluid Color Amber; Body Fluid Mono 20 %; Body Fluid Source Pleural Fluid; Body Fluid Total Cells Counted 166
[2023-11-13] MEDS: cefTRIAXone 1 gm/50 mL D5W 1 GM/50 ML BAG IV SCH (22:46)
[2023-11-14 05:02] LABS: Hematocrit 35.4 % (38-53); Hemoglobin 11.6 g/dL (13.2-16.3); Mean Corpuscular Hemoglobin 28.3 pg (27-33); Mean Corpuscular Hgb Conc 32.8 g/dL (31-36); Mean Corpuscular Volume 86.4 fL (80-97); Mean Platelet Volume 8.6 fL (7.5-11.2); Platelet Count 225 10^3/uL (150-450); Red Blood Count 4.09 10^6/uL (4.06-5.63)
[2023-11-14 05:55] LABS: Calcium 8.3 mg/dL (8.6-10.3); Creatinine, Serum 1.91 mg/dL (0.67-1.17); Magnesium 1.9 mg/dL (1.9-2.7); Potassium 4.5 mmol/L (3.5-5.0)
[2023-11-14] MEDS ORDERED: Vancomycin Trough Check NOTE FOLLOW UP ONE (08:00)
[2023-11-14] MEDS: Magnesium Sulfate IV 1GM/100ML 1 GM/100 ML BAG IV ONE (09:03)
[2023-11-14 09:21] LABS: Creatinine, Serum 1.89 mg/dL (0.67-1.17); Vancomycin Trough 14.8 mcg/mL; eGFR CKD-EPI 35.4 (>60)
[2023-11-14] MEDS ORDERED: Albuterol/Ipratropium NEB.SOL (2.5/0.5 MG) 3 ML NEB.SOLN INH SCH (15:00)
[2023-11-14] MEDS: Albuterol/Ipratropium NEB.SOL (2.5/0.5 MG) 3 ML NEB.SOLN ONE (15:13)
[2023-11-14] MEDS: Albuterol/Ipratropium NEB.SOL (2.5/0.5 MG) 3 ML NEB.SOLN INH SCH (15:26)
[2023-11-14] MEDS: methylPREDNISolone SOD SUCC 125 mg 2 ML VIAL IV ONE (17:02)
[2023-11-14] MEDS ORDERED: Albuterol/Ipratropium NEB.SOL (2.5/0.5 MG) 3 ML NEB.SOLN INH PRN (19:42)
[2023-11-15 03:44] LABS: Glucose Confirmatory 468 mg/dL (70-100)
[2023-11-15 03:53] LABS: Hematocrit 36.9 % (38-53); Hemoglobin 12.1 g/dL (13.2-16.3); Mean Corpuscular Hemoglobin 28.9 pg (27-33); Mean Corpuscular Hgb Conc 32.9 g/dL (31-36); Mean Corpuscular Volume 87.6 fL (80-97); Mean Platelet Volume 8.9 fL (7.5-11.2); Platelet Count 233 10^3/uL (150-450); Red Blood Count 4.21 10^6/uL (4.06-5.63); Red Cell Distribution Width 13.6 % (12-17); White Blood Count 8.9 10^3/uL (3.6-10.2)
[2023-11-15 04:51] LABS: Calcium 8.5 mg/dL (8.6-10.3); Creatinine, Serum 2.01 mg/dL (0.67-1.17); Magnesium 2.2 mg/dL (1.9-2.7); Potassium 5.3 mmol/L (3.5-5.0); eGFR CKD-EPI 32.9 (>60)
[2023-11-15 14:49] LABS: Lactate Dehydrogenase, BF 248 U/L
[2023-11-15 15:07] LABS: Glucose, BF 164 mg/dL
[2023-11-15 15:11] LABS: Albumin, BF 1.6 g/dL; Fluid Type, Albumin PLEURAL
[2023-11-15 15:12] LABS: Fluid Type, Protein, Total PLEURAL; Total Protein, BF 2.7 g/dL
[2023-11-15 15:20] LABS: Fluid Type, Amylase PLEURAL
[2023-11-15 16:43] LABS: Fluid Type: PLEURAL; Triglycerides (BF) 47 mg/dL
[2023-11-15] MEDS ORDERED: Dextrose 50% Syringe 50 ml 25 GM/50 ML SYRINGE IV PUSH PRN ×2 (16:47→17:42)
[2023-11-15 17:29] LABS: Glucose Confirmatory 414 mg/dL (70-100)
[2023-11-15 22:24] LABS: Glucose Confirmatory 440 mg/dL (70-100)
[2023-11-16 06:17] LABS: Calcium 8.7 mg/dL (8.6-10.3); Creatinine, Serum 2.21 mg/dL (0.67-1.17); Magnesium 2.3 mg/dL (1.9-2.7); eGFR CKD-EPI 29.4 (>60)
[2023-11-16] MEDS: Insulin GLARGINE 100 un/ml 10 ml VIAL SUBCUT SCH (07:42)
[2023-11-16] MEDS ORDERED: Insulin GLARGINE 100 un/ml 10 ml VIAL SUBCUT SCH ×2 (09:00→10:00)
[2023-11-16 09:52] VITALS: BP 134/64
[2023-11-16] MEDS: Insulin GLARGINE 100 un/ml 10 ml VIAL SUBCUT ONE (10:29)
[2023-11-17] MEDS ORDERED: Insulin GLARGINE 100 un/ml 10 ml VIAL SUBCUT SCH (09:00)
== END 2023-11-16 14:28 | DRG 871 ==
LOC: ED 11:13 → SUATTDRO 12:48 → EDHOLD 12:48 → ICU 13:56 → MED 11-11 14:21 → MEDTELE 11-11 18:11
PROVIDERS: ADMIT Student in an Organized Health Care Education/Training Program; ATTEND Internal Medicine